=== PATIENT | female | born 1980 | race Caucasian/White ===

== ENCOUNTER 2018-02-20 06:20 | Day surgery (SDC) | payer OTHER, SELFPAY ==
[2018-02-20] VITALS (7 sets, daily range): BP systolic 68–111; BP diastolic 52–60; PULSE 18–91; RESP 18; TEMP 36.6–37.1; O2SAT 94–99; BMI 22.7
--- NOTE | 2018-02-20 08:08 | OP.PCM_ITS ---
Operative Report Date of Procedure: 02/20/18 Preop diagnosis: [Patient with family history of colon cancer her father in his 40s] Postop diagnosis: [Normal-looking colon no large polyps seen] Anesthesia:[The MAC] Instrument:[Olympus adjustable pediatric colonoscope] Informed consent was taken prior to procedure. The patient was brought to the endoscopy suite and placed in the left shoulder down. Anesthesia provided the MAC. Rectal exam was performed prior to inserting the scope. The colonoscope was passed in the rectum rectal mucosa was normal moving up the left colon there was some redundancy to the left colon. Across the splenic flexure into the transverse colon mucosa was normal down the right colon cecum was well- visualized patient excellent preparation. The terminal ileum was intubated the ileum was normal. Backup the right colon the mucosa was normal there were no large polyps seen across the transverse colon below splenic flexure nodule left colon the vascular pattern mucosa was normal there were no large polyps in the left colon. Retroflexion performed in the rectum showed small internal hemorrhoid the colon was decompressed and the patient tolerated procedure well. Impression: Family history of colon cancer patient's father colon cancer in his 40s Plan: Repeat a colonoscopy in 7-[address] Jeff Mehta
== END 2018-02-20 09:05 | disposition home or self-care (01) ==
LOC: EN 06:22 → AC 06:23
PROVIDERS: Family Provider Family Medicine; PCP Family Medicine; Visit Provider Internal Medicine Gastroenterology
PROC: 0DJD8ZZ Inspection of Lower Intestinal Tract, Via Natural or Artificial Opening Endoscopic (ICD-10-PCS; CPT 45378; principal; 2018-02-20 07:25)
DX: R19.4 Change in bowel habit (principal); Q43.8 Other specified congenital malformations of intestine; Z88.2 Allergy status to sulfonamides; Z98.51 Tubal ligation status; Z80.0 Family history of malignant neoplasm of digestive organs
CPT/HCPCS: 45378; J7120

== ENCOUNTER → 2018-06-19 11:25 | Outpatient (CLI) | payer OTHER, SELFPAY ==
[2018-06-23 15:27] LABS: HPV Reflexed? NOT INDICATED
== END ==
PROVIDERS: Family Provider Family Medicine; PCP Family Medicine; Visit Provider Obstetrics & Gynecology
DX: Z12.4 Encounter for screening for malignant neoplasm of cervix (principal)
CPT/HCPCS: 88175; G0145

== ENCOUNTER → 2018-07-08 10:21 | Outpatient (CLI) | payer OTHER, SELFPAY ==
[2018-07-08 10:39] LABS: Absolute Lymphocyte Count 1.65 X10^3/ul (0.83-4.51); Absolute Neutrophil Count 3.9 X10^3/uL (2.0-7.7); Basophil# 0.02 X10^3/uL; Basophil% 0.3 % (0-1); Eosinophil# 0.05 X10^3/uL; Eosinophils% 0.8 % (0-5); Hematocrit 40.5 % (37-47); Hemoglobin 13.4 g/dl (12.0-15.0); Lymphocyte # 1.65 X10^3/ul (4.0); Mean Corp Hgb Conc 33.1 g/gl (32-36); Mean Corpuscular Hgb 31.5 pg (27.0-32.0); Mean Corpuscular Volume 95.3 fL (81-99); Mean Platelet Vol. 10.3 fl (6.2-12.0); Monocyte# 0.53 X10^3/uL; Monocyte% 8.7 % (0-10); Neutrophil # 3.85 X10^3/uL (2.7-7.7); Neutrophil % 63.2 % (47-70); POSITIVE COUNT NO; POSITIVE DIFFERENTIAL NO; POSITIVE MORPHOLOGY NO; Platelet Count 202 K/mm3 (150-450); RBC Distribution Width CV 12.9 % (11.6-14.6); RBC Distribution Width SD 44.9 fl (35.1-43.9); Red Blood Count 4.25 M/mm3 (4.2-5.4); White Blood Count 6.1 K/mm3 (4.4-11.0)
== END ==
PROVIDERS: Family Provider Family Medicine; PCP Family Medicine; Visit Provider Family Medicine
DX: D72.89 Other specified disorders of white blood cells (principal)
CPT/HCPCS: 36415; 85025

== ENCOUNTER → 2018-09-11 14:51 | Outpatient (CLI) | payer OTHER, SELFPAY | PROVIDERS: Family Provider Family Medicine; PCP Family Medicine; Referring Provider Otolaryngology; Visit Provider Otolaryngology | DX: J02.9 Acute pharyngitis, unspecified (principal) | CPT/HCPCS: 87070; 87077 ==

== ENCOUNTER → 2019-07-24 16:00 | Outpatient (CLI) | payer OTHER, SELFPAY ==
[2019-08-18 15:40] LABS: HPV Reflexed? NOT INDICATED
== END ==
PROVIDERS: Visit Provider Obstetrics & Gynecology
DX: Z12.4 Encounter for screening for malignant neoplasm of cervix (principal)
CPT/HCPCS: 88175; G0145

== ENCOUNTER → 2020-08-02 | Outpatient (CLI) | payer OTHER, SELFPAY ==
[2020-08-02 08:57] VITALS: BMI 22.7
[2020-08-08 01:42] LABS: HPV APTIMA, High Risk Negative (Negative)
== END | disposition home or self-care (01) ==
LOC: LABSPEC 15:15
PROVIDERS: PCP Obstetrics & Gynecology; Referring Provider Nurse Practitioner Women's Health; Visit Provider Nurse Practitioner Women's Health
DX: Z12.4 Encounter for screening for malignant neoplasm of cervix (principal)
CPT/HCPCS: 87624; 88175; G0145

== ENCOUNTER → 2020-08-19 07:15 | Outpatient (CLI) | payer OTHER, SELFPAY ==
[2020-08-02 08:57] VITALS: BMI 22.7
--- NOTE | 2020-08-19 06:56 | BI_ITS ---
MAMMOGRAPHY - BILATERAL SCREENING REASON FOR EXAM: Female, 39 years old. Routine annual screening examination. PERTINENT HISTORY: Non-contributory. TECHNIQUE: Digital bilateral breast teressa (3D mammographic acquisition) in the CC and MLO projections. 2-D mediolateral oblique (MLO) and craniocaudad (CC) views of both breasts were obtained. CAD: Full Field Digital Mammography with Computer Added Detection was performed. COMPARISON: None. Baseline examination. FINDINGS: Breast Composition: The breasts are extremely dense, which lowers the sensitivity of mammography. There are no dominant masses or suspicious calcifications. No other significant abnormalities are identified. BI/SCREEN MAMM (CAD) W/TERESSA BILAT IMPRESSION: Negative screening mammogram. Yearly followup mammogram recommended. (A) ASSESSMENT CATEGORY: BIRADS Category 1: Negative. A letter regarding these results will be sent to the patient by the facility within 30 days. Approximately 10% of breast cancers are not detected by mammography. A normal mammogram should not delay biopsy of a clinically suspicious abnormality. [id number] Electronically Signed: Deion Alonzo, at 12:35 EDT , Service support ,
== END ==
PROVIDERS: PCP Family Medicine; Referring Provider Nurse Practitioner Women's Health; Visit Provider Nurse Practitioner Women's Health
DX: Z12.31 Encounter for screening mammogram for malignant neoplasm of breast (principal)
CPT/HCPCS: 77063; 77067

== ENCOUNTER → 2021-08-21 14:37 | Outpatient (CLI) | payer OTHER, SELFPAY ==
--- NOTE | 2021-08-21 14:52 | BI_ITS ---
MAMMOGRAPHY - BILATERAL SCREENING REASON FOR EXAM: Female, 40 years old. Routine annual screening examination. PERTINENT HISTORY: Non-contributory. TECHNIQUE: Digital bilateral breast teressa (3D mammographic acquisition) in the CC and MLO projections. 2-D mediolateral oblique (MLO) and craniocaudad (CC) views of both breasts were obtained. CAD: Full Field Digital Mammography with Computer Added Detection was performed. COMPARISON: Comparison is made with prior examination dated 08/19/2020. FINDINGS: Breast Composition: The breasts are extremely dense, which lowers the sensitivity of mammography. There are no dominant masses or suspicious calcifications. No other significant abnormalities are identified. There has been no significant change since the prior study. BI/SCRN MAMM (CAD)W/TERESSA BILAT IMPRESSION: Stable bilateral screening mammogram. Yearly follow-up mammogram recommended. (A) ASSESSMENT CATEGORY: BIRADS Category 1: Negative. A letter regarding these results will be sent to the patient by the facility within 30 days. Approximately 10% of breast cancers are not detected by mammography. A normal mammogram should not delay biopsy of a clinically suspicious abnormality. [id number] Electronically Signed: Deion Alonzo MD at 15:27 EDT , Service support ,
== END ==
PROVIDERS: PCP Family Medicine; Referring Provider Obstetrics & Gynecology; Visit Provider Obstetrics & Gynecology
DX: Z12.31 Encounter for screening mammogram for malignant neoplasm of breast (principal)
CPT/HCPCS: 77063; 77067

== ENCOUNTER 2022-01-01 14:36 | Outpatient (RCR) | payer OTHER, SELFPAY | END 2022-01-08 23:59 | LOC: NS 14:36 | PROVIDERS: PCP Family Medicine; Referring Provider Family Medicine; Visit Provider Family Medicine | DX: Z71.3 Dietary counseling and surveillance (principal) | CPT/HCPCS: 97802 ==

== ENCOUNTER 2022-01-24 11:00 | Outpatient (RCR) | payer OTHER, SELFPAY | END 2022-02-08 23:59 | LOC: NS 11:00 | PROVIDERS: PCP Family Medicine; Referring Provider Family Medicine; Visit Provider Family Medicine | DX: Z71.3 Dietary counseling and surveillance (principal) | CPT/HCPCS: 97803 ==

== ENCOUNTER 2022-03-05 09:30 | Outpatient (RCR) | payer OTHER, SELFPAY | END 2022-03-10 23:59 | LOC: NS 09:30 | PROVIDERS: PCP Family Medicine; Referring Provider Family Medicine; Visit Provider Family Medicine | DX: Z71.3 Dietary counseling and surveillance (principal) | CPT/HCPCS: 97803 ==

== ENCOUNTER 2022-03-21 08:33 | Outpatient (RCR) | payer OTHER, SELFPAY | END 2022-04-10 23:59 | LOC: NS 08:33 | PROVIDERS: PCP Family Medicine; Referring Provider Family Medicine; Visit Provider Family Medicine | DX: Z71.3 Dietary counseling and surveillance (principal) | CPT/HCPCS: 97803 ==

== ENCOUNTER 2022-05-01 15:22 | Outpatient (RCR) | payer OTHER, SELFPAY | END 2022-05-10 23:59 | LOC: NS 15:22 | PROVIDERS: PCP Family Medicine; Referring Provider Family Medicine; Visit Provider Family Medicine | DX: Z71.3 Dietary counseling and surveillance (principal); Z68.22 Body mass index [BMI] 22.0-22.9, adult | CPT/HCPCS: 97803 ==

== ENCOUNTER 2022-05-22 08:25 | Outpatient (RCR) | payer OTHER, SELFPAY | END 2022-06-10 23:59 | LOC: NS 08:25 | PROVIDERS: PCP Family Medicine; Referring Provider Family Medicine; Visit Provider Family Medicine | DX: Z71.3 Dietary counseling and surveillance (principal) | CPT/HCPCS: 97803 ==

== ENCOUNTER 2022-07-24 07:19 | Emergency (ER) | payer OTHER, SELFPAY ==
[2022-07-24 07:20] VITALS: BP 112/86; PULSE 79; RESP 14; TEMP 35.7; O2SAT 99; BMI 23.8
--- NOTE | 2022-07-24 07:36 | EX.ED.DYSGE1 ---
HPI History of Present Illness Chief Complaint: Abd Pain Narrative Narrative: Patient presents with epigastric and left upper quadrant pain that was worse this morning. For the past year or so she has had this pain mostly in the mornings. Today it was worse than usual. By the time she got to the emergency department she was asymptomatic and she has no pain. She is able to pass gas, she has no nausea or vomiting, no diarrhea or constipation. She has no back pain or tearing sensation no flank pain. No urinary symptoms. She had a tubal ligation and is denying . Currently she is asymptomatic [facility] Medical History Anxiety with depression Home Medications venlafaxine 75 mg capsule,extended release 24 hr (Effexor XR) 75 mg PO DAILY #30 caps 08/07/21 [Rx Last Taken Unknown] venlafaxine 37.5 mg capsule,extended release 24 hr 37.5 mg PO DAILY #7 caps 01/22/22 [Rx Last Taken Unknown] sucralfate 1 gram tablet (Carafate) 1 g PO BID #10 tabs 07/24/22 [Rx Last Taken Unknown] Allergy/AdvReac Type Severity Reaction Status Date / Time sulfamethoxazole Allergy Swelling Verified 07/24/22 07:20 [From Bactrim] trimethoprim [From Bactrim] Allergy Swelling Verified 07/24/22 07:20 Family History Father Colon cancer Sister Lupus (systemic lupus erythematosus) Aunt Cancer Skin Grandfather Colon cancer Surgical History H/O section H/O tubal ligation H/O wisdom tooth extraction Social History household members: family number of children: 3 current occupational status: employed 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 ROS ROS ED ROS Narrative Past medical history: Reviewed Medications: Reviewed Social history: Noncontributory Review of systems: All systems negative except as indicated General: No fever Eyes: No visual changes ENT: No upper airway congestion, normal voice Neck: No neck pain Cardiovascular: No chest pain Respiratory: No shortness of breath or cough Gastrointestinal: As in HPI Genitourinary: No dysuria Musculoskeletal: Denies myalgias no difficulty with ambulation Skin: No rash Neurological: No memory loss, confusion or any focal weakness Psych: No recent behavioral changes Hematologic: No easy bleeding or easy bruising EXAM Physical Exam Narrative Exam Narrative: Physical exam General: Well nourished, Well developed, No Acute Distress Head: Normocephalic, Atraumatic Eyes: Conjunctiva not pale ENT: Moist mucous membranes Neck: Supple, Nontender, No lymphadenopathy Cardiovascular: Regular rate, Regular rhythm Respiratory: No distress, CTA bilaterally Abdomen: Soft, Nontender, Nondistended. I am palpating throughout the entire abdomen and she has no tenderness no guarding or rebound. Back: Nontender, Normal Inspection. Negative for: CVA tenderness Extremities: Nontender, No edema Skin: Normal color, No rash Neurological: Alert, Normal Strength, Normal Sensation Psychological: Normal affect Const Vital Signs: 07/24/22 07:20 Temperature 96.3 F L Temperature Source Temporal Pulse Rate 79 Respiratory Rate 14 Blood Pressure 112/86 H Blood Pressure Mean 94 Pulse Ox 99 Oxygen Delivery Method Room Air MDM MDM MDM Narrative Medical decision making narrative: Patient has a normal work-up. She appears well, she likely has gastritis, or an ulcer or GERD. She needs an endoscopy, she just darted a PPI 2 days ago with us a does not had enough time to work. She told me that a year ago she had about 6 weeks of a PPI and this improved her symptoms for a few months. Lab Data Labs: Laboratory Results - last 24 hr 07/24/22 07/24/22 08:04 08:04 WBC 4.0 L RBC 4.20 Hgb 11.7 L Hct 36.0 L MCV 85.7 MCH 27.9 MCHC 32.5 RDW Std Deviation 48.7 H RDW Coeff of Kayleigh 15.6 H Plt Count 260 MPV 10.0 Immature Gran % (Auto) 0.500 Neut % (Auto) 63.6 Lymph % (Auto) 21.7 [place] % (Auto) 12.0 H Eos % (Auto) 1.5 Baso % (Auto) 0.7 Absolute Neuts (auto) 2.6 Absolute Lymphs (auto) 0.87 Nucleated RBC % 0 Sodium 138 Potassium 4.4 Chloride 106 Carbon Dioxide 27.0 Anion Gap 5 BUN 11 Creatinine 0.83 Estim Creat Clear Calc 85.86 Est GFR (MDRD) Af Amer 96 Est GFR (MDRD) Non-Af 80 BUN/Creatinine Ratio 13.2 Glucose 92 Calcium 8.5 Total Bilirubin 0.60 AST 12 L ALT 16 Alkaline Phosphatase 44 L Total Protein 7.1 Albumin 3.4 Globulin 3.7 Albumin/Globulin Ratio 0.9 Lipase 206 Discharge Plan Triage Chief Complaint: Abd Pain ED Provider: César Bass Dx/Rx/DC Orders Clinical Impression: Acute epigastric pain, Gastritis Instructions: ED Gastritis (Adult) Prescriptions: New sucralfate [Carafate] 1 gram tablet 1 g PO BID Qty: 10 0RF No Action venlafaxine [Effexor XR] 75 mg capsule,extended release 24hr 75 mg PO DAILY Qty: 30 12RF venlafaxine 37.5 mg capsule,extended release 24hr 37.5 mg PO DAILY Qty: 7 0RF Primary Care Provider: Jeff Mehta Referrals: Fabrice Cuenca MD [Med Staff - Active Staff] - 3-5 Days Jeff Mehta MD [Primary Care Provider] - Disposition Disposition: Home, Self Care
[2022-07-24 08:11] LABS: Absolute Lymphocyte Count 0.87 X10^3/uL (0.83-4.51); Absolute Neutrophil Count 2.6 X10^3/uL (2.0-7.7); Basophil# 0.03 X10^3/uL; Basophil% 0.7 % (0-1); Eosinophil# 0.06 X10^3/uL; Eosinophils% 1.5 % (0-5); Hemoglobin 11.7 g/dL (12.0-15.0); Lymphocyte # 0.87 X10^3/ul (0.83-4.51); Lymphocyte % 21.7 % (19-41); Mean Corp Hgb Conc 32.5 g/dL (32-36); Mean Corpuscular Hgb 27.9 pg (27.0-32.0); Mean Corpuscular Volume 85.7 fL (81-99); Monocyte# 0.48 X10^3/uL; NRBC Flagged by Analyzer 0 % (0-5); Neutrophil # 2.55 X10^3/uL (2.7-7.7); Neutrophil % 63.6 % (47-70); Platelet Count 260 K/mm3 (150-450); RBC Distribution Width CV 15.6 % (11.6-14.6); RBC Distribution Width SD 48.7 fl (35.1-43.9)
[2022-07-24 08:33] LABS: ALB/GLOB Ratio 0.9 RATIO (0.9-2.4); AST(SGOT) 12 U/L (15-37); Alanine Aminotransfer ALT/SGPT 16 U/L (13-56); Albumin, Serum 3.4 g/dL (3.2-5.0); Alkaline Phosphatase 44 U/L (45-117); Anion Gap 5 (5-15); BUN 11 mg/dL (7-18); BUN/Creat Ratio 13.2 RATIO (10-20); Calcium,Total 8.5 mg/dL (8.5-10.1); Chloride 106 mmol/L (98-107); Creatinine, Serum 0.83 mg/dL (0.55-1.02); EST Glomerular Filtration Rate 80 mL/min (>60); Est Glom Filt Rate - Afr Amer 96 mL/min (>60); Estimated Creatinine Clearance 85.86 ml/min; Globulin 3.7 g/dL (2.2-4.2); Glucose 92 mg/dL (74-106); Lipase 206 U/L (73-393); Potassium 4.4 mmol/L (3.5-5.1); Protein, Total 7.1 g/dL (6.4-8.2); Sodium Level 138 mmol/L (136-145)
== END 2022-07-24 08:49 | disposition home or self-care (01) ==
LOC: ED 07:52
PROVIDERS: Emergency Provider Emergency Medicine; PCP Family Medicine; Visit Provider Emergency Medicine
DX: K29.70 Gastritis, unspecified, without bleeding (principal); Z98.51 Tubal ligation status; Z80.0 Family history of malignant neoplasm of digestive organs
CPT/HCPCS: 80053; 83690; 85025; 99283; A4216

== ENCOUNTER → 2022-09-03 | Outpatient (CLI) | payer OTHER, SELFPAY ==
--- NOTE | 2022-09-03 08:46 | BI_ITS ---
MAMMOGRAPHY - BILATERAL SCREENING REASON FOR EXAM: Female, 41 years old. Routine annual screening examination. PERTINENT HISTORY: Non-contributory. TECHNIQUE: Digital bilateral breast teressa (3D mammographic acquisition) in the CC and MLO projections. 2-D mediolateral oblique (MLO) and craniocaudad (CC) views of both breasts were obtained. CAD: Full Field Digital Mammography with Computer Added Detection was performed. COMPARISON: Comparison is made with prior study 08/21/2021 and 08/19/2020 FINDINGS: Breast Composition: The breasts are extremely dense, which lowers the sensitivity of mammography. There are no dominant masses or suspicious calcifications. No other significant abnormalities are identified. There has been no significant change since the prior study. BI/SCRN MAMM (CAD)W/TERESSA BILAT IMPRESSION: Stable bilateral screening mammogram. Yearly follow-up mammogram recommended. (A) ASSESSMENT CATEGORY: BIRADS Category 1: Negative. A letter regarding these results will be sent to the patient by the facility within 30 days. Approximately 10% of breast cancers are not detected by mammography. A normal mammogram should not delay biopsy of a clinically suspicious abnormality. [id number] Electronically Signed: Deion Alonzo MD at 9:50 EDT ,
== END | disposition home or self-care (01) ==
LOC: OPBI 08:44
PROVIDERS: PCP Family Medicine; Visit Provider Obstetrics & Gynecology
DX: Z12.31 Encounter for screening mammogram for malignant neoplasm of breast (principal)
CPT/HCPCS: 77063; 77067

== ENCOUNTER 2022-09-14 06:28 | Day surgery (SDC) | payer OTHER, SELFPAY ==
[2022-09-14] VITALS (7 sets, daily range): BP systolic 90–105; BP diastolic 57–70; PULSE 60–77; RESP 16; TEMP 36.6–37.1; O2SAT 94–100; BMI 23.4
--- NOTE | 2022-09-14 | GASB_PTH ---
PATIENT: SARAH FAY LOC: EN U#:[id number] AGE/SX: 41/F ROOM: RE09/14/[address]: Dr. Fabrice Cuenca MD : 1980 BED: DIS: 09/14/2022 SPEC #: [id number] RECD: 09/14/22 13:21 STATUS: ELENA MCHUGH #: [id number] FRANDY: 09/14/22 00:[address]: Fabrice Cuenca DEPT: SURGICAL PATHOLOGY RECD BY: Frandy Alcaraz ENTERED: 09/14/22 13:21 SP TYPE: Gastric Bx OTHR DR: Dr. Jeff Mehta MD Tissues: Gastric mucous membrane Procedures: Surgery Specimen Level IV HEADER OPERATION: Colonoscopy, EGD ([facility]), biopsy PRE-OP DIAGNOSIS: Left upper quadrant abdominal pain TISSUE SUBMITTED: Antrum biopsy for histo and H. pylori MICROSCOPIC DIAGNOSIS Antrum, biopsy: Mild gastritis. See microscopic description and comment. SJ:tino 09/17/2022 COMMENT The results of immunohistochemistry for Helicobacter pylori will be reported separately ([id number]). MICROSCOPIC DESCRIPTION Slides are reviewed. The specimen shows fragments of gastric mucosa with chronic inflammatory cell infiltrates in the lamina propria consisting of lymphocytes and plasma cells, consistent with mild chronic gastritis. GROSS DESCRIPTION Received in fixative is one container labeled with the patient's name and designated antrum. The specimen consists of two irregular fragments of light hurt soft tissue that in aggregate measure 0.5 x 0.3 x 0.1 cm. The specimen is totally submitted in one cassette. / AM:tino 09/14/2022 TC:3 CPT: 53017
--- NOTE | 2022-09-14 06:51 | PCM.HP.BLA ---
History and Physical Date of Admission: 09/14/22 Intake Vital Signs ? 07/24/2207:20 07/26/2213:00 Height 5 ft 7 in 5 ft 7 in Weight: 151 lb 14.376 oz 151 lb 8 oz BMI 23.8 23.7 BP 112/86 H 119/78 Blood Pressure Location ? Rt brachial Position ? Sitting Respiration 14 18 Pulse 79 73 Pulse Source ? Monitor Temp 96.3 F L 97.8 F Temp Source Temporal Temporal Pulse Oximetry (%) 99 100 Oxygen Delivery Method ? room air Intake Visit Reasons:?ED 07/24 RUQ PAIN Chief Complaint: Epigastric pain/upper abdomen Corrosion Engineer Required: No Is patient in pain?: No Allergies sulfamethoxazole [From Bactrim] Allergy (Verified 07/26/22 13:01) Swellingtrimethoprim [From Bactrim] Allergy (Verified 07/26/22 13:01) Swelling Medications omeprazole 20 mg capsule,delayed release 20 mg PO DAILY 07/26/22 [History Confirmed 07/26/22] sucralfate 1 gram tablet (Carafate) 1 g PO BID PRN 07/26/22 [History Confirmed 07/26/22] PFSH Medical History? Acute epigastric pain Anxiety with depression Family history of colon cancer in father Gastritis Surgical History? H/O section H/O tubal ligation H/O wisdom tooth extraction Family History?(Updated 07/26/22 @ 13:00 by Carol Covington) Father Colon cancerSister Lupus (systemic lupus erythematosus)Aunt Cancer ?? ? Skin Colon cancerGrandfather Colon cancer Social History? household members:? family number of children:? 3 current occupational status:? 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 Never smoker alcohol intake:? never substance use type:? does not use caffeine:? Yes what type of physical activity do you participate in:? walking seatbelt use:? always do you feel safe at home:? Yes additional social history:? Spouse: [facility] HPI HPI HPI: 41-year-old female here for left-sided abdominal pain.? She reports that for about a year she has been having left upper quadrant pain every morning when she wakes up with occasional nausea.? Patient had severe pain earlier this week and went to the emergency room.? Her white count was normal.? She has restarted her PPI.? Her last colonoscopy was 4 years ago.? She does have significant family history of colon cancer in relatives under age 60.? She denies any blood in her stool.? She has never had an EGD. ROS General General: No weight change, appetite, fatigue, colon cancer, breast cancer or weakness HEENT HEENT: No difficulty swallowing, eye injury, eye surgery, swollen glands or hoarseness Endo Endocrine: No thyroid disease, diabetes mellitus, thyroid cancer, Hair loss, heat intolerance or cold intolerance Skin Skin: No rash or changing moles Breast Breast: No left breast lump, right breast lump, nipple discharge, breast pain, abnormal mammogram, abnormal US or breast enlargement Musc Musculoskeletal: No back problems, arthritis, rheumatoid arthritis, gout or joint pain Cardio Cardiovascular: No murmur, pacemaker, heart disease, atrial fibrillation, high blood pressure, heart attack, heart stent, palpitations, shortness of breat with exertion or chest pain Psych Psychiatric: No depression, anxiety or hearing voices Resp Respiratory: No shortness of breath, No sleep apnea, No cough, No COPD, No asthma, No emphysema and No wheezing Gastro Gastrointestinal: Yes abdominal pain, No nausea or vomiting, No diarrhea, No constipation, No blood in stool, Yes acid reflux, No hemorrhoids, No ulcers, No gallbladder problem and No black,tarry stools Additional Details: Frequent belching Alexandru Hematologic: No blood thinners, No blood disorders, No bleeding, No anemia and No blood clots Neuro Neurologic: No system reviewed and no additional complaints, except as documented, No as per HPI, No abnormal gait, No abnormal hearing, No abnormal movements, No abnormal speech, No behavioral changes, No burning sensations, No confusion, No convulsions, No disequilibrium, No dizziness, No localized weakness, No frequent falls, No headache(s), No lack of coordination, No loss of vision, No memory loss, No numbness, No other visual disturbances, No radicular pain, No restless legs, No sensory deficit, No syncope, No tingling, No tremor(s), No weakness and No other Exam Const General: cooperative Orientation: alert and oriented x3 HENMT Head: normal to inspection Neck Neck: normal visual inspection and full ROM Chest Chest palpation & inspection: normal inspection of the chest Resp Effort & Inspection: normal respiratory effort Auscultation: clear to auscultation bilaterally Cardio Rate: regular rate Rhythm: regular rhythm GI Inspection: non-distended Palpation: soft and nontender Skin General: no rashes or lesions noted Neuro General: patient alert and patient oriented x3 Extrem General: full ROM Psych Appearance: grossly normal Mental Status: mental status grossly normal Assessment and Plan Assessment and Plan (1) Left upper quadrant abdominal pain: ?Status:?Acute ?Plan: Patient has ongoing left upper quadrant pain with occasional nausea.? She has resumed her PPI.? I would recommend EGD and colonoscopy.? I believe she needs EGD with biopsy to ensure there is no H. pylori and to check for ulceration that is not healing.? I would also recommend colonoscopy as she will be due for screening next year anyway as she has family history and every 5-year colonoscopy would be recommended.? Left upper quadrant pain could also be arising from the colon. I explained endoscopy in detail to the patient.? I explained the risks including but not limited to stroke or heart attack with anesthesia, perforation of the GI tract, bleeding, infection.? I explained that any of these could necessitate further emergency surgery.? The patient understands and all questions were answered sufficiently.? The patient wishes to proceed with procedure. Fabrice Cuenca MD Pager: [facility] [address] [place] [address], [address] [place] [address] Office: I have seen and reexamined the patient and there are no changes
[2022-09-14] MEDS: Lactated Ringers 1,000 ML 15 ML IV (07:05)
--- NOTE | 2022-09-14 07:30 | IMM_PTH ---
PATIENT: SARAH FAY LOC: EN U#:[id number] AGE/SX: 41/F ROOM: RE09/14/[address]: Dr. Fabrice Cuenca MD : 1980 BED: DIS: 09/14/2022 SPEC #: [id number] RECD: 09/14/22 13:49 STATUS: ELENA REQ #: [id number] FRANDY: 09/14/22 07:[address]: Fabrice Cuenca DEPT: IMMUNOHISTOCHEMISTRY RECD BY: Maryuri Real ENTERED: 09/14/22 13:49 SP TYPE: IMMUNO OTHR DR: Dr. Jeff Mehta MD Tissues: Stomach, NOS Procedures: H Pylori (initial) PHYSICIAN & INSTITUTION [place] [id number] SPECIMEN INFORMATION: Tissue Source: Antrum biopsy Clinical Info: Left upper quadrant abdominal pain Specimen Number: [id number] CPT code: 84823 METHODOLOGY: Deparaffinized sections of prefer/formalin-fixed tissue or PAP/DQ stained slides are incubated with monoclonal/polyclonal antibodies/oligonucleotide probes. Localization is made via biotin free immunoperoxidase method. Appropriate controls are performed and reacted as expected. Results on target cell population are indicated in the following table: RESULTS: ANTIBODY / CLONE RESULT H Pylori (polyclonal) negative These tests were developed and their performance characteristics determined by [facility]. They may not have been cleared or approved by the U.S. Food and Drug Administration. The FDA has determined that such clearance or approval is not necessary. The above immunohistochemical/dualISH markers are ordered and reviewed by the Pathologist. INTERPRETATION: Antrum, biopsy: Negative for Helicobacter pylori organisms. KATHY:tino 09/17/2022
--- NOTE | 2022-09-14 08:18 | OP.EGD_ITS ---
Patient Name: Mary Ramos Procedure Date: 09/14/2022 7:24 AM Date of : 1980 Age: 41 Procedure: Upper GI endoscopy Indications: Abdominal pain in the left upper quadrant, Dyspepsia Providers: Fabrice Cuenca MD Referring MD: Jeff Mehta Medicines: Monitored Anesthesia Care Patient Profile: This is a 41 year old female. Refer to note in patient chart for documentation of history and physical. Complications: No immediate complications. Estimated blood loss: Minimal. Procedure: Pre-Anesthesia Assessment: - Prior to the procedure, a History and Physical was performed, and patient medications and allergies were reviewed. The patient's tolerance of previous anesthesia was also reviewed. The risks and benefits of the procedure and the sedation options and risks were discussed with the patient. All questions were answered, and informed consent was obtained. Prior Anticoagulants: The patient has taken no previous anticoagulant or antiplatelet agents. After reviewing the risks and benefits, the patient was deemed in satisfactory condition to undergo the procedure. After obtaining informed consent, the endoscope was passed under direct vision. Throughout the procedure, the patient's blood pressure, pulse, and oxygen saturations were monitored continuously. The gastroscope was introduced through the mouth, and advanced to the second part of duodenum. The upper GI endoscopy was accomplished without difficulty. The patient tolerated the procedure well. Scope In: 7:48:02 AM Scope Out: 7:51:13 AM Total Procedure Duration Time 0 hours 3 minutes 11 seconds Findings: The esophagus was normal. The stomach was normal. The examined duodenum was normal. Biopsies were taken with a cold forceps in the gastric antrum for Helicobacter pylori testing. Impression: - Normal esophagus. - Normal stomach. - Normal examined duodenum. - Biopsies were taken with a cold forceps for Helicobacter pylori testing. Recommendation: - Discharge patient to home. - Resume previous diet. - Continue present medications. - Await pathology results. Procedure Code(s): --- Professional --- 90764, Esophagogastroduodenoscopy, flexible, transoral; with biopsy, single or multiple Diagnosis Code(s): --- Professional --- R10.12, Left upper quadrant pain R10.13, Epigastric pain CPT copyright 2017 [employer]. All rights reserved. The codes documented in this report are preliminary and upon courtesy driver review may be revised to meet current compliance requirements. Fabrice Cuenca MD 09/14/2022 8:18:21 AM This report has been signed electronically. Number of Addenda: 0 Note Initiated On: 09/14/2022 7:24 AM
--- NOTE | 2022-09-14 08:19 | OP.CCLET_ITS ---
09/14/2022 Jeff Mehta Re : Upper GI endoscopy procedure for Mary Ramos Dear Tyson This procedure was performed on Wednesday, September 14, 2022. My impressions and recommendations are as follows: Impressions : - Normal esophagus. - Normal stomach. - Normal examined duodenum. - Biopsies were taken with a cold forceps for Helicobacter pylori testing. Recommendations : - Discharge patient to home. - Resume previous diet. - Continue present medications. - Await pathology results. My findings are described in the full procedure note, which is enclosed. If I can be of further assistance, please feel free to contact me at Doctor phone number(s): , Work: . Sincerely, Fabrice Cuenca MD 09/14/2022 8:18:21 AM This report has been signed electronically.
--- NOTE | 2022-09-14 08:22 | OP.CCLET_ITS ---
09/14/2022 Jeff Mehta Re : Colonoscopy procedure for Mary Ramos Dear Tyson This procedure was performed on Wednesday, September 14, 2022. My impressions and recommendations are as follows: Impressions : - The entire examined colon is normal on direct and retroflexion views. - No specimens collected. Recommendations : - Discharge patient to home. - Resume previous diet. - Continue present medications. - Repeat colonoscopy in 5 years for surveillance. My findings are described in the full procedure note, which is enclosed. If I can be of further assistance, please feel free to contact me at Doctor phone number(s): , Work: . Sincerely, Fabrice Cuenca MD 09/14/2022 8:21:20 AM This report has been signed electronically.
--- NOTE | 2022-09-14 08:22 | OP.COLON_ITS ---
Patient Name: Mary Ramos Procedure Date: 09/14/2022 7:52 AM Date of : 1980 Age: 41 Procedure: Colonoscopy Indications: Screening in patient at increased risk: Family history of 1st-degree relative with colorectal cancer Providers: Fabrice Cuenca MD Referring MD: Jeff Mehta Medicines: Monitored Anesthesia Care Patient Profile: This is a 41 year old female. Refer to note in patient chart for documentation of history and physical. Last Colonoscopy: 5 years ago. Complications: No immediate complications. Procedure: Pre-Anesthesia Assessment: - Prior to the procedure, a History and Physical was performed, and patient medications and allergies were reviewed. The patient's tolerance of previous anesthesia was also reviewed. The risks and benefits of the procedure and the sedation options and risks were discussed with the patient. All questions were answered, and informed consent was obtained. Prior Anticoagulants: The patient has taken no previous anticoagulant or antiplatelet agents. After reviewing the risks and benefits, the patient was deemed in satisfactory condition to undergo the procedure. After I obtained informed consent, the scope was passed under direct vision. Throughout the procedure, the patient's blood pressure, pulse, and oxygen saturations were monitored continuously. The Colonoscope was introduced through the anus and advanced to the cecum, identified by appendiceal orifice and ileocecal valve. The colonoscopy was performed without difficulty. The patient tolerated the procedure well. The quality of the bowel preparation was good. Scope In: 7:53:54 AM Scope Withdrawal Time 0 hours 6 minutes 0 seconds Scope Out: 8:08:33 AM Total Procedure Duration Time 0 hours 14 minutes 39 seconds Findings: The entire examined colon appeared normal on direct and retroflexion views. Impression: - The entire examined colon is normal on direct and retroflexion views. - No specimens collected. Recommendation: - Discharge patient to home. - Resume previous diet. - Continue present medications. - Repeat colonoscopy in 5 years for surveillance. Procedure Code(s): --- Professional --- 29318, Colonoscopy, flexible; diagnostic, including collection of specimen(s) by brushing or washing, when performed (separate procedure) Diagnosis Code(s): --- Professional --- Z80.0, Family history of malignant neoplasm of digestive organs CPT copyright 2017 [employer]. All rights reserved. The codes documented in this report are preliminary and upon solvent recoverer review may be revised to meet current compliance requirements. Fabrice Cuenca MD 09/14/2022 8:21:20 AM This report has been signed electronically. Number of Addenda: 0 Note Initiated On: 09/14/2022 7:52 AM
== END 2022-09-14 09:10 | disposition home or self-care (01) ==
LOC: EN 06:29 → AC 06:29
PROVIDERS: PCP Family Medicine; Referring Provider Family Medicine; Visit Provider Surgery
PROC: 0DJD8ZZ Inspection of Lower Intestinal Tract, Via Natural or Artificial Opening Endoscopic (ICD-10-PCS; CPT 45378; principal; 2022-09-14 07:25)
DX: Z12.11 Encounter for screening for malignant neoplasm of colon (principal); K29.70 Gastritis, unspecified, without bleeding; R10.12 Left upper quadrant pain; R10.13 Epigastric pain; Z80.0 Family history of malignant neoplasm of digestive organs
CPT/HCPCS: 45378; 43239; 88305; 88342; J7120; J2405

== ENCOUNTER 2022-09-28 15:25 | Outpatient (CLI) | payer OTHER, SELFPAY | END 2022-09-28 23:59 | disposition home or self-care (01) | LOC: LABSPEC 15:26 | PROVIDERS: PCP Family Medicine; Visit Provider Family Medicine | DX: R30.0 Dysuria (principal) | CPT/HCPCS: 87086; 87088 ==

== ENCOUNTER → 2023-09-02 | Outpatient (CLI) | payer OTHER, SELFPAY ==
--- NOTE | 2023-09-02 08:00 | BI_ITS ---
MAMMOGRAPHY - BILATERAL SCREENING REASON FOR EXAM: Female, 42 years old. Routine annual screening examination. PERTINENT HISTORY: Non-contributory. TECHNIQUE: Digital bilateral breast teressa (3D mammographic acquisition) in the CC and MLO projections. 2-D mediolateral oblique (MLO) and craniocaudad (CC) views of both breasts were obtained. CAD: Full Field Digital Mammography with Computer Added Detection was performed. COMPARISON: Comparison is made with prior study September 03, 2022 and August 21, 2021. FINDINGS: Breast Composition: The breasts are extremely dense, which lowers the sensitivity of mammography. There are no dominant masses or suspicious calcifications. No other significant abnormalities are identified. There has been no significant change since the prior study. BI/SCRN MAMM (CAD)W/TERESSA BILAT IMPRESSION: Stable bilateral screening mammogram. Yearly follow-up mammogram recommended. (A) ASSESSMENT CATEGORY: BIRADS Category 1: Negative. A letter regarding these results will be sent to the patient by the facility within 30 days. Approximately 10% of breast cancers are not detected by mammography. A normal mammogram should not delay biopsy of a clinically suspicious abnormality. [id number] Electronically Signed: Deion Alonzo MD at 9:09 EDT ,
== END | disposition home or self-care (01) ==
LOC: OPBI 08:00
PROVIDERS: PCP Family Medicine; Referring Provider Obstetrics & Gynecology; Visit Provider Obstetrics & Gynecology
DX: Z12.31 Encounter for screening mammogram for malignant neoplasm of breast (principal)
CPT/HCPCS: 77063; 77067

== ENCOUNTER → 2024-07-27 | Outpatient (CLI) | payer OTHER, SELFPAY | END | disposition home or self-care (01) | LOC: MFPLAB 11:38 | PROVIDERS: PCP Family Medicine; Visit Provider Family Medicine | DX: N39.0 Urinary tract infection, site not specified (principal) | CPT/HCPCS: 87086; 87088; 87186 ==

== ENCOUNTER → 2024-09-07 | Outpatient (CLI) | payer OTHER, SELFPAY ==
--- NOTE | 2024-09-07 09:44 | BI_ITS ---
MAMMOGRAPHY - BILATERAL SCREENING REASON FOR EXAM: Female, 43 years old. Routine annual screening examination. PERTINENT HISTORY: Aunt with breast cancer. TECHNIQUE: Digital bilateral breast teressa (3D mammographic acquisition) in the CC and MLO projections. 2-D mediolateral oblique (MLO) and craniocaudad (CC) views of both breasts were obtained. CAD: Full Field Digital Mammography with Computer Added Detection was performed. COMPARISON: Comparison is made with prior study dated September 02, 2023 and September 03, 2022. FINDINGS: Breast Composition: The breasts are extremely dense, which lowers the sensitivity of mammography. There are no dominant masses or suspicious calcifications. No other significant abnormalities are identified. There has been no significant change since the prior study. BI/SCRN MAMM (CAD)W/TERESSA BILAT IMPRESSION: Stable bilateral screening mammogram. Yearly follow-up mammogram recommended. (A) ASSESSMENT CATEGORY: BIRADS Category 1: Negative. A letter regarding these results will be sent to the patient by the facility within 30 days. Approximately 10% of breast cancers are not detected by mammography. A normal mammogram should not delay biopsy of a clinically suspicious abnormality. [id number] Electronically Signed: Deion Alonzo MD at 10:41 EDT ,
--- OUTSIDE RECORDS SUMMARY | 2024-09-07 10:27 | XMS RPT_ITS | CCD ---
Author Organization [facility] Care Team Providers Care Sole Assessor Name Role Phone Huy Richardson Unavailable Evita Gunderson LPN Unavailable Huy Richardson Unavailable Unavailable Primary Care Provider Unavailabl e Unavailable Primary Care Provider Unavailabl e PROVIDER, UNKNOWN Admitting Unavailable PROVIDER, UNKNOWN Attending Unavailable PROVIDER, UNKNOWN Attending Unavailable PROVIDER, UNKNOWN Admitting Unavailable PROVIDER, UNKNOWN Admitting Unavailable FRANDY ALVARADO Attending Unavailable PROVIDER, UNKNOWN Admitting Unavailable PROVIDER, UNKNOWN Attending Unavailable Allergies Allergy Classification Reported Allergen(s) Allergy Type Date of Onset Reaction(s) Facility (11 sources) Sulfamethoxazole ; Translations: [SULFAMETHOXAZOL E] Propensity to adverse reactions to drug 08-17-[address] [facility] Medications Current Medications Medication Drug Class(es) Dates Sig (Normalized) Sig (Original) cephalexin 500 mg oral capsule (1 source) Cephalosporin Antibacterial Start: 07-02-2024 End: 07-16-2024 take 1 capsule by mouth four times daily cephALEXin (KEFLEX) 500 MG capsule Take 1 Capsule by mouth 4 times daily for 14 days. 56 Capsule 07/02/2024 07/16/2024 Active clindamycin 150 mg oral capsule (3 sources) Lincosamide Antibacterial Start: 07-02-2024 End: 07-16-2024 take 2 capsules by mouth four times daily clindamycin (CLEOCIN) 150 MG capsule Take 2 Capsules by mouth 4 times daily for 14 days. 112 Capsule 07/02/2024 Active doxycycline monohydrate 100 mg oral capsule (8 sources) Tetracycline-class Drug Start: 08-08-2023 take 1 capsule by mouth twice daily doxycycline (MONODOX) 100 MG capsule Take 1 Capsule by mouth 2 times daily. 14 Capsule 08/08/2023 Active metroNIDAZOLE 500 mg oral tablet (1 source) Nitroimidazole Antimicrobial Start: 07-02-2024 End: 07-09-2024 take 1 tablet by mouth twice daily metronidazole (FLAGYL) 500 MG tablet Take 1 Tablet by mouth 2 times daily for 7 days. 14 Tablet 07/02/2024 07/09/2024 Active Completed/Discontinued Medications Medication Drug Class(es) Dates Sig (Normalized) Sig (Original) cefTRIAXone 500 mg injection (1 source) Cephalosporin Antibacterial Start: 07-02-2024 End: 07-02-2024 inject 1 dose by intramuscular injection once 500 mg, Intramuscular, ONCE, 1 dose, On Liz 07/02/24 at 1112 10 ml lidocaine hydrochloride 10 mg/ml injection (1 source) Antiarrhythmic, Amide Local Anesthetic Start: 07-02-2024 End: 07-02-2024 1 dose, Starting on Liz 07/02/24 at 1123, Until Liz 07/02/24 at 1135 Problems Active Problems Problem Classification Problem Date Documented Da te Episodic/Chronic Inflammatory diseases of female pelvic organs (1 source) Bacterial vaginosis; Translations: [Acute vaginitis] 07-02-2024 Episodic Other injuries and conditions due to external causes (1 source) Foreign body in vagina; Translations: [Foreign body in vulva and vagina, initial encounter] 07-02-2024 Episodic Other screening for suspected conditions (not mental disorders or infectious disease) (2 sources) Patient encounter status; Translations: [Encounter for screening for lipoid disorders] 07-04-2023 Episodic Residual codes; unclassified (4 sources) Body mass index 20-24 - normal; Translations: [Body mass index (BMI) 24.0-24.9, adult] 08-08-2023 Episodic Skin and subcutaneous tissue infections (4 sources) Paronychia of finger; Translations: [Cellulitis of unspecified finger] 08-08-2023 Episodic Past or Other Problems Problem Classification Problem Date Documented Da te Episodic/Chronic Other upper respiratory infections (3 sources) Pharyngitis; Translations: [Acute pharyngitis, unspecified] Onset: 04-07-2017 04-07-2017 Episodic Results Test Name Value Interpretation Reference Range Facility ED Noteson 07-02-2024 Information Technology Specialist Authentication Interface Message Text Pt discharged at this time, no S/S distress, no IV present. Discharge paperwork provided, pt voices understanding of same and denies questions. PT ambulates to lobby with no difficulty. Normal [facility] ED Provider [place]oon 07-02-20 Information Technology Specialist Authentication Interface Message Text EMERGENCY DEPARTMENT - VISIT NOTE HISTORY OF PRESENT ILLNESS ------ Chief Complaint Patient presents with Foreign Body - Other States thinks she has a tampon stuck since Saturday, denies cramping, pain, discharge. +foul odor The history is provided by the Patient. SARAH Ramos is a 43 year old female presenting to the ED for concerns of a retained tampon x1 week, +foul odor, no abdominal/back pain, no dysuria. Pt Denies: N/V/D/F, abdominal/back pain, dysuria, or rash Sick Contacts: none Home Treatment: none PAST HISTORY -- Past Medical History: reviewed Surgical History: reviewed Social History: Smoking cessation counseling of less than 3 minutes was provided to the patient including Reinforced decision not to smoke. Family History: reviewed The patient's home medications have been reviewed. Allergies: Allergies Allergen Reactions Sulfamethoxazole Hives PHYSICAL EXAM --- BP 126/82 Pulse 74 Temp 98.1 ???F (36.7 ???C) (Oral) Resp 16 SpO2 100% General: NAD Head: Normocephalic Eyes: No conjunctival injection or eye discharge, lids normal Mouth: Moist mucous membranes, oropharynx clear Neck: FROM, no anterior cervical LAD, no bony tenderness Neuro: Awake, alert, active CVS: RRR Lungs: CTA bilaterally Abdomen: Soft, nontender, nondistended, no guarding : no CMT, no adnexal tenderness, +copious brown discharge, +retained tampon Skin: warm and dry Musculoskeletal: FROM Back: no bony tenderness, no CVAT MEDICAL DECISION MAKING and ED COURSE - Nursing triage and assessment notes reviewed and incorporated. Medication Management: Medications prescribed - see visit medications. Independent Test Interpretation: Labs Lab studies personally interpreted UA: no UTI, +some blood, +leukocytes GC/Chlamydia/Trichom onas: pending SOUTH/Wet Mount: +clue cells, no yeast Course: PROCEDURE NOTE: FOREIGN BODY REMOVAL Informed consent, after discussion of the risks, benefits, and alternatives to the procedure, was obtained verbally from the patient prior to procedure. The patient was identified using two patient identifiers: Yes. The H AND P along with required diagnostics are available in Epic: Yes The correct procedure was verified: Yes Procedural site identified: Yes Presence of required equipment verified prior to starting procedure: Yes Patient allergies identified or reviewed: Yes Site marking done: Not indicated A timeout to verify the correct patient, procedure, and site was performed immediately prior to the procedure The presence of the foreign body in the vagina was noted. The patient was cooperative for the procedure. The foreign body was removed using forceps. The patient tolerated the procedure well. Frandy Alvarado APRN-FERNANDO Assessment AND Plan: Foreign Body Vagina Discussed reasons to return to the ED. F/u with MACHINE SWEEPER BRUSH MAKER/PCP. IMPRESSION AND DISPOSITION -------- Clinical Impression Diagnosis Comment Foreign body in vagina, initial encounter [T19.2XXA] Bacterial vaginosis [N76.0, B96.89] Disposition: Home The patient has received a medical screening examination and within reasonable clinical confidence an emergency medical condition was identified and has been stabilized. Counseling: Spoke with the patient and discussed today's findings, in addition to providing specific details for the plan of care and expected course. They were given the opportunity to ask questions. Discussed return precautions and importance of follow-up. Advised to follow-up with PCP/MACHINE SWEEPER BRUSH MAKER. Advised to return to the ED for changing or worsening symptoms, new symptoms, complaint specific precautions, and precautions listed on the discharge paperwork. Educated on the common potential side effects of medications prescribed. ED Prescriptions: Clindamycin, Keflex, Flagyl Frandy Alvarado, ICE CREAM MIXER-WEB DEVELOPMENT MANAGER Normal [facility] GC/CHLAMYDIA AMPLIFICATIONon 07-02-2024 GC/CHLAMYDIA AMPLIFICATION GC AMPLIFICATION: Negative CHLAMYDIA AMPLIFICATION: Negative Normal Negative [facility] Comment on above: Order Comment: This test is performed using an automated nucleic acid amplification assay (Feedback-Machine). Performed By: #### G CA #### [facility] [address] [place], [place] SOUTH PREP, FUNGUSon Fungus SOUTH prep Ql (Unsp spec) No Yeast Negative [facility] SOUTH PREP, FUNGUS CR SOUTH: No Yeast Normal Negative [facility] Comment on above: Performed By: #### C R WET, CR SOUTH #### [facility] [address] [place], [place] No Panel Informationon 07-02 [facility] URINALYSISon 07-02-2024 Appearance (U) Clear Clear [facility] Bilirubin Ql (U) Negative Negative [facility] Color (U) Light Yellow Colorless [facility] Epithelial cells.squamous LM.HPF (Urine sed) [#/Area] 6-10 [facility] Glucose Auto test strip (U) [Mass/Vol] Negative Negative mg/dL [facility] Hemoglobin Ql (U) Small Abnormal Negative [facility] Interpretation and review of laboratory results Abnormal [facility] Ketones Ql (U) Negative Negative mg/dL [facility] Leukocyte esterase Test strip Ql (U) Positive Abnormal Negative [facility] Comment on above: Normal urine specime ns will not produce a positive reaction. Small amounts of leukocyte esterase, causing a positive reaction should be repeated, using a fresh urine specimen, from the same patient. Positive results require further testing for pyuria. Nitrite Ql (U) Negative Negative [facility] pH (U) 6.0 [pH] 5.0 - 8.0 [facility] Protein (U) [Mass/Vol] Negative Negat vito mg/dL [facility] Specific gravity (U) [Rel density] 1.014 NINF - 1.030 [facility] Urobilinogen Qn (U) Negative Negative mg/dL [facility] WBC (U) [#/Vol] 0-2 [facility] WBC LM.HPF (Urine sed) [#/Area] 0-2 [facility] A negative leukocyte esterase AND negative nitrite test or absence of pyuria (urine WBC count <= 5-10) make a UTI (urinary tract infection) very unlikely in a non-neutropenic adult (<=5% likelihood in many studies). A positive leukocyte esterase, nitrite and/or pyuria is a nonspecific result. This can be seen in conditions other than a UTI e.g. asymptomatic bacteriuria, gynecologic infections, sexually transmitted infections, and noninfectious conditions (positive predictive value for UTI around 50%) [facility] Glucose Ql (U) Negative Normal Negative [facility] Comment on above: Order Comment: A neg ative leukocyte esterase AND negative nitrite test or absence of pyuria (urine WBC count <= 5-10) make a UTI (urinary tract infection) very unlikely in a non-neutropenic adult (<=5% likelihood in many studies). A positive leukocyte esterase, nitrite and/or pyuria is a nonspecific result. This can be seen in conditions other than a UTI e.g. asymptomatic bacteriuria, gynecologic infections, sexually transmitted infections, and noninfectious conditions (positive predictive value for UTI around 50%) Performed By: #### u rinalysis ####S PATHOLOGY [id number] [place], [id number] SQUAMOUS EPITHELIAL 6-10 Normal 0-10 [facility] Comment on above: Order Comment: A neg ative leukocyte esterase AND negative nitrite test or absence of pyuria (urine WBC count <= 5-10) make a UTI (urinary tract infection) very unlikely in a non-neutropenic adult (<=5% likelihood in many studies). A positive leukocyte esterase, nitrite and/or pyuria is a nonspecific result. This can be seen in conditions other than a UTI e.g. asymptomatic bacteriuria, gynecologic infections, sexually transmitted infections, and noninfectious conditions (positive predictive value for UTI around 50%) Performed By: #### u rinalysis ####[facility] [id number] [place], [place], U APPEAR Clear Normal Clear [facility] Comment on above: Order Comment: A neg ative leukocyte esterase AND negative nitrite test or absence of pyuria (urine WBC count <= 5-10) make a UTI (urinary tract infection) very unlikely in a non-neutropenic adult (<=5% likelihood in many studies). A positive leukocyte esterase, nitrite and/or pyuria is a nonspecific result. This can be seen in conditions other than a UTI e.g. asymptomatic bacteriuria, gynecologic infections, sexually transmitted infections, and noninfectious conditions (positive predictive value for UTI around 50%) Performed By: #### u rinalysis ####[facility] PATHOLOGY [id number] [place] [address], [place] BILI Negative Normal Negative [facility] Comment on above: Order Comment: A neg ative leukocyte esterase AND negative nitrite test or absence of pyuria (urine WBC count <= 5-10) make a UTI (urinary tract infection) very unlikely in a non-neutropenic adult (<=5% likelihood in many studies). A positive leukocyte esterase, nitrite and/or pyuria is a nonspecific result. This can be seen in conditions other than a UTI e.g. asymptomatic bacteriuria, gynecologic infections, sexually transmitted infections, and noninfectious conditions (positive predictive value for UTI around 50%) Performed By: #### u rinalysis ####[facility] PATH[facility]Y [id number] [place], [place], U BLOOD Small Abnormal Negative [facility] Comment on above: Order Comment: A neg ative leukocyte esterase AND negative nitrite test or absence of pyuria (urine WBC count <= 5-10) make a UTI (urinary tract infection) very unlikely in a non-neutropenic adult (<=5% likelihood in many studies). A positive leukocyte esterase, nitrite and/or pyuria is a nonspecific result. This can be seen in conditions other than a UTI e.g. asymptomatic bacteriuria, gynecologic infections, sexually transmitted infections, and noninfectious conditions (positive predictive value for UTI around 50%) Performed By: #### u rinalysis ####[facility] PATHOLOGY [id number] [place], [place], U COLOR Light Yellow Normal Colorless [facility] Comment on above: Order Comment: A neg ative leukocyte esterase AND negative nitrite test or absence of pyuria (urine WBC count <= 5-10) make a UTI (urinary tract infection) very unlikely in a non-neutropenic adult (<=5% likelihood in many studies). A positive leukocyte esterase, nitrite and/or pyuria is a nonspecific result. This can be seen in conditions other than a UTI e.g. asymptomatic bacteriuria, gynecologic infections, sexually transmitted infections, and noninfectious conditions (positive predictive value for UTI around 50%) Performed By: #### u rinalysis ####[facility] PATHOLOGY [id number] [place], [place], [place] KETONE Negative Normal Negative [facility] Comment on above: Order Comment: A neg ative leukocyte esterase AND negative nitrite test or absence of pyuria (urine WBC count <= 5-10) make a UTI (urinary tract infection) very unlikely in a non-neutropenic adult (<=5% likelihood in many studies). A positive leukocyte esterase, nitrite and/or pyuria is a nonspecific result. This can be seen in conditions other than a UTI e.g. asymptomatic bacteriuria, gynecologic infections, sexually transmitted infections, and noninfectious conditions (positive predictive value for UTI around 50%) Performed By: #### u rinalysis ####[facility] PATH[facility] [id number] [place], [place], U LEUK Positive Abnormal Negative [facility] Comment on above: Order Comment: A neg ative leukocyte esterase AND negative nitrite test or absence of pyuria (urine WBC count <= 5-10) make a UTI (urinary tract infection) very unlikely in a non-neutropenic adult (<=5% likelihood in many studies). A positive leukocyte esterase, nitrite and/or pyuria is a nonspecific result. This can be seen in conditions other than a UTI e.g. asymptomatic bacteriuria, gynecologic infections, sexually transmitted infections, and noninfectious conditions (positive predictive value for UTI around 50%) Result Comment: Norm al urine specimens will not produce a positive reaction. Small amounts of leukocyte esterase, causing a positive reaction should be repeated, using a fresh urine specimen, from the same patient. Positive results require further testing for pyuria. Performed By: #### u rinalysis ####[facility] PATHOLOGY [id number] [place], [place], [place] NITRITE Negative Normal Negative [facility] Comment on above: Order Comment: A neg ative leukocyte esterase AND negative nitrite test or absence of pyuria (urine WBC count <= 5-10) make a UTI (urinary tract infection) very unlikely in a non-neutropenic adult (<=5% likelihood in many studies). A positive leukocyte esterase, nitrite and/or pyuria is a nonspecific result. This can be seen in conditions other than a UTI e.g. asymptomatic bacteriuria, gynecologic infections, sexually transmitted infections, and noninfectious conditions (positive predictive value for UTI around 50%) Performed By: #### u rinalysis ####[facility] PATHOLOGY [id number] [place], [place], [place] PH 6.0 Normal 5.0-8.0 [facility] Comment on above: Order Comment: A neg ative leukocyte esterase AND negative nitrite test or absence of pyuria (urine WBC count <= 5-10) make a UTI (urinary tract infection) very unlikely in a non-neutropenic adult (<=5% likelihood in many studies). A positive leukocyte esterase, nitrite and/or pyuria is a nonspecific result. This can be seen in conditions other than a UTI e.g. asymptomatic bacteriuria, gynecologic infections, sexually transmitted infections, and noninfectious conditions (positive predictive value for UTI around 50%) Performed By: #### u rinalysis ####[facility] PATHOLOGY [id number] [place], [place], [place] PROTEIN Negative Normal Negative [facility] Comment on above: Order Comment: A neg ative leukocyte esterase AND negative nitrite test or absence of pyuria (urine WBC count <= 5-10) make a UTI (urinary tract infection) very unlikely in a non-neutropenic adult (<=5% likelihood in many studies). A positive leukocyte esterase, nitrite and/or pyuria is a nonspecific result. This can be seen in conditions other than a UTI e.g. asymptomatic bacteriuria, gynecologic infections, sexually transmitted infections, and noninfectious conditions (positive predictive value for UTI around 50%) Performed By: #### u rinalysis ####[facility] PATHOLOGY [id number] [place], [place], U RBC 0-2 Normal 0-2 [facility] Comment on above: Order Comment: A neg ative leukocyte esterase AND negative nitrite test or absence of pyuria (urine WBC count <= 5-10) make a UTI (urinary tract infection) very unlikely in a non-neutropenic adult (<=5% likelihood in many studies). A positive leukocyte esterase, nitrite and/or pyuria is a nonspecific result. This can be seen in conditions other than a UTI e.g. asymptomatic bacteriuria, gynecologic infections, sexually transmitted infections, and noninfectious conditions (positive predictive value for UTI around 50%) Performed By: #### u rinalysis ####[facility] PATHOLOGY [id number] [place], [place], [place] SG 1.014 Normal <=1.030 [facility] Comment on above: Order Comment: A neg ative leukocyte esterase AND negative nitrite test or absence of pyuria (urine WBC count <= 5-10) make a UTI (urinary tract infection) very unlikely in a non-neutropenic adult (<=5% likelihood in many studies). A positive leukocyte esterase, nitrite and/or pyuria is a nonspecific result. This can be seen in conditions other than a UTI e.g. asymptomatic bacteriuria, gynecologic infections, sexually transmitted infections, and noninfectious conditions (positive predictive value for UTI around 50%) Performed By: #### u rinalysis ####[facility] PATHOLOGY [id number] [place], [place], [place] UROBILI Negative Normal Negative [facility] Comment on above: Order Comment: A neg ative leukocyte esterase AND negative nitrite test or absence of pyuria (urine WBC count <= 5-10) make a UTI (urinary tract infection) very unlikely in a non-neutropenic adult (<=5% likelihood in many studies). A positive leukocyte esterase, nitrite and/or pyuria is a nonspecific result. This can be seen in conditions other than a UTI e.g. asymptomatic bacteriuria, gynecologic infections, sexually transmitted infections, and noninfectious conditions (positive predictive value for UTI around 50%) Performed By: #### u rinalysis ####S PATHOLOGY [id number] [place], [place], [place] WBC 0-2 Normal 0-2 [facility] Comment on above: Order Comment: A neg ative leukocyte esterase AND negative nitrite test or absence of pyuria (urine WBC count <= 5-10) make a UTI (urinary tract infection) very unlikely in a non-neutropenic adult (<=5% likelihood in many studies). A positive leukocyte esterase, nitrite and/or pyuria is a nonspecific result. This can be seen in conditions other than a UTI e.g. asymptomatic bacteriuria, gynecologic infections, sexually transmitted infections, and noninfectious conditions (positive predictive value for UTI around 50%) Performed By: #### u rinalysis ####[facility] PATHOLOGY [id number] [place], [place], WET MOUNT PREPARATIONOrdered By: Kt Leary on 07-02-2024 Clue cells Wet prep Ql (Unsp spec) Moderate (20-70%) Abnormal None Seen [facility] Interpretation and review of laboratory results Abnormal [facility] T. vaginalis Wet prep Ql (Unsp spec) None Seen None Seen [facility] WBC Wet prep (Unsp spec) [#/Area] 3-10 Abnormal None Seen /[facility] Yeast Wet prep Ql (Unsp spec) None Seen None [facility]en [facility] WET MOUNT PREPARATIONon 06-12 WET MOUNT PREPARATION CLUE CELLS: Moderate (20-70%) WBC: 3-10 TRICHOMONAS REFLEX: None Seen YEAST: None Seen Normal None Seen [facility] Comment on above: Performed By: #### C R WET, CR SOUTH #### [facility] Pathology [address] [facility] [address] [place], [place] Progress Noteson 08-10-2023 Information Technology Specialist Authentication Interface Message Text Called patient. Discussed sensitivity of staph aureus from wound culture. She continues to take doxycycline. Her wound is improving - - no pain minimal redness, no warmth no systemic signs of illness. A/P: Continue doxycycline. Follow up with PCP in two days. All questions answered Normal [facility] AEROBIC WOUND CULTUREon 07-13 AEROBIC WOUND CULTURE C PYOG: Positive Culture Report STAPHYLOCOCCUS AUREUS 2+ Staphylococcus aureus GRAM STAIN: 4+ Polymorphonuclear Leukocytes No Squamous Epithelial Cells seen 2+ Gram Positive Cocci Normal [facility] Comment on above: Performed By: #### C PYOG ####[facility] [id number] [place], [place] PACO ORGANISM: STAPHYLOCOCCUS AUREUS ANTIBIOTIC PACO SENSITIVITY Clindamycin 0.25 S Daptomycin <= 0.12 S Erythromycin <= 0.25 S Linezolid 2 S Oxacillin 0.5 S Tetracycline >= 16 R Trimethoprim + Sulfamethoxazole <= 10 S Vancomycin 1 S Doxycycline 8 I Normal [facility] Comment on above: Performed By: #### C PYOG ####[facility] [id number] [place], [place] Addendum Noteon 08-08-2023 Information Technology Specialist WOWIOation Interface Message Text Addended by: ROBEL CACERES on: 08/08/2023 02:49 PM Modules accepted: Level of Service Normal [facility] Progress Noteson 08-08-2023 Information Technology Specialist WOWIOation Interface Message Text Teaching Physician Note: I saw and evaluated the patient. I personally obtained the anthony and critical portions of the history and physical exam. I reviewed the resident's documentation and discussed the patient with the resident. I agree with the resident's medical decision making as documented in the resident's note. Robel Caceres MD Normal [employer] Information Technology Specialist Authentication Interface Message Text Primary Care Visit [place], [place] [address] This patient is a 42 year old female here in clinic today to discuss: Chief Complaint: Urgent Visit and Hand/finger symptoms No prior visits. Subjective: SARAH Ramos is a 42 year old female with no significant past medical history presenting for painful, red left second finger Pt presents with three weeks of left index finger swelling and pain. 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 Pt has been able to express pus in past week. Decreased sensation at tip of left first finger with redness, not extending proximally. Denies N/V/D, abdominal pain, fever. Hx Current Outpatient Medications: doxycycline (MONODOX) 100 MG capsule, Take 1 Capsule by mouth 2 times daily., Disp: 14 Capsule, Rfl: 0 Allergies Allergen Reactions Sulfamethoxazole Hives No past medical history on file. No past surgical history on file. No family history on file. Social History Tobacco Use Smoking status: Never Smokeless tobacco: Never Review of Systems: Review of Systems Constitutional: Negative for chills and fever. Gastrointestinal: Negative for abdominal pain, diarrhea, nausea and vomiting. Objective: Vitals: BP 126/69 Pulse 70 Temp 96.8 ???F (36 ???C) (Temporal) Resp 16 Ht 5' 7 (1.702 m) Wt 154 lb 8 oz (70.1 kg) SpO2 100% BMI 24.20 kg/m??? no prior weight on file Physical Exam Constitutional: General: She is not in acute distress. Appearance: Normal appearance. She is normal weight. She is not ill-appearing or toxic-appearing. Eyes: Extraocular Movements: Extraocular movements intact. Conjunctiva/sclera: Conjunctivae normal. Pupils: Pupils are equal, round, and reactive to light. Cardiovascular: Rate and Rhythm: Normal rate and regular rhythm. Pulses: Normal pulses. Heart sounds: Normal heart sounds. No murmur heard. No friction rub. No gallop. Pulmonary: Effort: Pulmonary effort is normal. Breath sounds: Normal breath sounds. No wheezing, rhonchi or rales. Abdominal: General: Abdomen is flat. Bowel sounds are normal. Palpations: Abdomen is soft. Musculoskeletal: General: Swelling (left distal second finger with fluctuant area palpated, tenderness, redness. Not extending proximal to left second DIP joint) present. Neurological: Mental Status: She is alert. Labs: Most Recent Labs: CBC (last 3 years, up to 5 values) None Basic Metabolic Panel None LFT's (last 3 years, up to 5 values) None No results found for: HBA1C Lipids (last 3 years, up to 5 values) Chol- esterol TG HDL LDL Chol / HDL LDL / HDL Non HDL 07/04/23 0746 111 64 62 41 1.79 0.66 49 The ASCVD Risk score (Bita DK, et al., 2019) failed to calculate. No results found for: TSH Assessment/Plan SARAH Ramos is a 42 year old female with no significant past medical history presenting for painful, red left second finger SARAH was seen today for urgent visit and hand/finger symptoms. Diagnoses and all orders for this visit: Paronychia of finger, unspecified laterality -Present for three weeks starting at medial nail base of second finger -Pt able to express pus with pressing on area -Fluctuant area palpated at medial finger -Pus expression suggests staph infection likely. - CONSENT FOR PROCEDURE(S) - AEROBIC WOUND CULTURE -Start doxycyline 100mg BID for 7 days. -Follow up with PCP in 7 days to ensure resolution of symptoms -Pt aware of need to go to the ED if redness does not resolve and begins to move proximally. PROCEDURE NOTE: INCISION AND DRAINAGE Informed consent was obtained after discussion of the risks, benefits, and alternatives to the procedure. A timeout to verify the correct patient, procedure, and site was performed immediately prior to the procedure. The area to I AND D was identified. Anesthesia was obtained with 5 cc of Lidocaine 1%. The area was prepped and draped in the usual fashion. A number 11 scalpel was used to create an incision. Return was 2 cc of purulent material mixed with blood. The site was then cleaned with alcohol wipes. A dressing was placed over the site. The patient tolerated the procedure well. Other orders - doxycycline (MONODOX) 100 MG capsule; Take 1 Capsule by mouth 2 times daily. Health Maintenance Health Maintenance Due Topic Date Due COVID-19 Vaccine (1329-3445 formulation) Never done HIV Test Never done Hepatitis C Antibody Never done Pap Smear Never done Mammography Never done HPV Vaccine (optional start 27-45 years) 2006 Influenza Vaccine (1) 07/12/2023 RTC: No follow-ups on file. Plan discussed with attending Dr. Caceres. Ej Petersen DO, PGY-1 Internal Medicine Normal [employer] Information Technology Specialist Authentication Interface Message Text Patient was identified by name and date of . Cresencio Petersen. 08/08/2023 Normal [employer] GLUCOSE, FASTINGon 3 Glucose post fast [Mass/Vol] 82 mg/dL 65 - 100 mg/dL [facility] Interpretation and review of laboratory results Normal [facility] Pre-Diabetes: 100 - 125 mg/dL Diabetes: > 125 mg/dL [facility] Lipid 1996 panelon 3 Cholesterol [Mass/Vol] 111 mg/dL NINF - 200 mg/dL [facility] Cholesterol in HDL [Mass/Vol] 62 mg/dL 54 - PINF mg/dL [facility] Cholesterol in LDL [Mass/Vol] 41 mg/dL NINF - 111 mg/dL [facility] Cholesterol in LDL/Cholesterol in HDL [Mass ratio] 0.66 {ratio} NINF - 3.57 [facility] Cholesterol non HDL [Mass/Vol] 49 mg/dL NINF - 130 mg/dL [facility] Cholesterol.total/Chol esterol in HDL [Mass ratio] 1.79 {ratio} NINF - 5.00 [facility] Interpretation and review of laboratory results Normal [facility] Triglyceride [Mass/Vol] 64 mg/dL NINF - 151 mg/dL [facility] Microbiology: Culture, R/O S trep Aon 04-10-2017 CUSTREPA . [facility] Work Phone: GE use only - for LinkLogic import when terms are not otherwise specified . Invalid Interpretation Code [facility] Work Phone: Office Visit: UC: Warner paul 04-07-2017 Documentation of current medications (procedure) Done Invalid Interpretation Code [facility] Work Phone: Documentation of current medications (procedure) T Invalid Interpretation Code [facility] Work Phone: Tobacco smoking status NHIS Never Invalid Interpretation Code [facility] Work Phone: Tobacco smoking status NHIS Never smoker [facility] Work Phone: Tobacco use [facility] Never smoker Invalid Interpretation Code [facility] Work Phone: Vital Signs Date Time Vital Sign Value Performing Clinician Facility 07-02-2024 09:36-0400 Body temperature 98.1 [degF] Frandy Alvarado ICE CREAM MIXER-WEB DEVELOPMENT MANAGER Work Phone: [facility] 07-02-2024 09:36-0400 Diastolic blood pressure 82 mm[Hg] Frandy Alvarado APRN-WEB DEVELOPMENT MANAGER [facility] 07-02-2024 09:36-0400 Heart rate 74 /min Frandy Alvarado ICE CREAM MIXER-WEB DEVELOPMENT MANAGER [facility] 07-02-2024 09:36-0400 Respiratory rate 16 /min Frandy Alvarado ICE CREAM MIXER-WEB DEVELOPMENT MANAGER [facility] 07-02-2024 09:36-0400 SaO2% (BldA) [Mass fraction] 100 % Frandy Alvarado APRN-WEB DEVELOPMENT MANAGER Work Phone: [facility] 07-02-2024 09:36-0400 Systolic blood pressure 126 mm[Hg] Frandy Alvarado ICE CREAM MIXER-WEB DEVELOPMENT MANAGER Work Phone: [facility] 08-08-2023 13:07-0400 Body height 170.2 cm Med [facility] 08-08-2023 13:07-0400 Body mass index (BMI) [Ratio] 24.2 kg/m2 Med Provider [facility] 08-08-2023 13:07-0400 Body temperature 96.8 [degF] Med Provider [facility] 08-08-2023 13:07-0400 Body weight 70.08 kg Med Provider [facility] 08-08-2023 13:07-0400 Diastolic blood pressure 69 mm[Hg] Med Provider [facility] 08-08-2023 13:07-0400 Heart rate 70 /min Med Provider [facility] 08-08-2023 13:07-0400 Respiratory rate 16 /min Med Provider [facility] 08-08-2023 13:07-0400 SaO2% (BldA) [Mass fraction] 100 % Med Provider [facility] 08-08-2023 13:07-0400 Systolic blood pressure 126 mm[Hg] [facility] 04-07-2017 08:21-0400 BMI (Body Mass Index) 22.08 kg/m2 Evita Gunderson LPN [facility] Work Phone: 04-07-2017 08:21-0400 Body Temperature 98.6 [degF] Evita Gunderson LPN [facility] Work Phone: 04-07-2017 08:21-0400 Body weight 63.96 kg Huy SAMAYOA [facility] Work Phone: 04-07-2017 08:21-0400 BP Diastolic 72 mm[Hg] Evita Gunderson LPN [facility] Work Phone: 04-07-2017 08:21-0400 BP Systolic 110 mm[Hg] Evita Gunderson LPN [facility] Work Phone: 04-07-2017 08:21-0400 Height 170.18 cm Evita Gunderson LPN [facility] Work Phone: 04-07-2017 08:21-0400 Pulse (Heart Rate) 64 /min Evita Gunderson LPN [facility] Work Phone: 04-07-2017 08:21-0400 Pulse Oximetry 99 % Evita Gunderson LPN [facility] Work Phone: 04-07-2017 08:21-0400 Respiratory Rate 14 /min Evita Gunderson LPN [facility] Work Phone: 04-07-2017 08:21-0400 Weight 63.96 kg Evita Gunderson LPN [facility] Work Phone: Encounters Encounter Date Encounter Type Care Provider Facility Start: 08-05-2024 End: 08-05-2024 Orders Only Jalil Vora MD Work Phone: [facility] - Ambulatory Start: 07-15-2024 ambulatory UNKNOWN PROVIDER Facili ty:[facility] Start: 07-02-2024 End: 07-02-2024 Emergency department patient visit Frandy Pamela BENOIT Work Phone: [facility] Emergency Medicine Comment on above: Foreign Body - Other (States thinks she has a tampon stuck since Saturday, denies cramping, pain, discharge. +foul odor) Start: 03-22-2024 [facility] Start: 08-28-2023 ambulatory UNKNOWN PROVIDER Facili ty:[facility] Start: 08-10-2023 Telephone encounter Robel ward MD Work Phone: [facility] Internal Medicine Start: 08-08-2023 End: 08-08-2023 Office outpatient new 30 minutes Med Care Provider [facility] Comment on above: Paronychia of finger , unspecified laterality (Primary Dx); Body mass index (BMI) 24.0-24.9, adult Start: 08-08-2023 End: 08-08-2023 ambulatory UNKNOWN PROVIDER Facility:[facility] Start: 07-04-2023 End: 07-04-2023 Clinical Support Pathology Provider [facility] Main Cam pus Pathology Comment on above: Arrived Start: 09-25-2022 Letter encounter [facility] Procedures Date Procedure Procedure Detail Performing Clinician Start: 07-02-2024 Smr prim src wet karol nt nfct agt Frandy Alvarado ICE CREAM MIXER-WEB DEVELOPMENT MANAGER Work Phone: Start: 07-02-2024 Urnls dip stick/tabl et rgnt auto w/o microscopy Frandy Alvarado ICE CREAM MIXER-WEB DEVELOPMENT MANAGER Work Phone: Start: 08-08-2023 Cul bact xcpt urine blood/stool aerobic isol Robel Caceres MD Work Phone: Start: 07-04-2023 Glucose quantitative blood xcpt reagent strip Gina Guallpa MD Work Phone: Start: 04-07-2017 End: 04-07-2017 Documentation of current medications Huy SAMAYOA Start: 04-07-2017 End: 04-07-2017 Iaadiadoo streptococcus group a Rei De La Cruz PA-C Work Phone: Start: 04-07-2017 End: 04-07-2017 Rapid strep test Rei De La Cruz PA-C Work Phone: Start: 09-27-2004 Microscopic observat ion [Identifier] in Cervix by Cyto stain Frandy Alvarado APRN-WEB DEVELOPMENT MANAGER Work Phone: Plan of Treatment Date Care Activity Detail Author Start: 2029 Shingles (RZV) Vacci ne (1 of 2) Shingles (RZV) Vaccine (1 of 2) [facility] Start: 04-26-2029 Tetanus vaccination Tetanus (T d or Tdap) Booster [facility] Start: 10-01-2024 End: 10-01-2024 Patient encounter procedure 10/01/2024 1:00 PM EST Office Visit [facility] [address] [place] [address] Janelle Ni, CARLOS-WEB DEVELOPMENT MANAGER [address] [place] [address] [facility] Start: 09-02-2024 Screening for malign ant neoplasm of breast Mammography [facility] Start: 08-11-2024 Influenza vaccination Influenza Vacc ine (#1) [facility] Start: 07-12-2024 Influenza vaccination Influenza Vacc ine (#1) [facility] Start: 07-02-2024 COVID-19 Vaccine ( formulation) COVID-19 Vaccine ( formulation) [facility] Start: 09-03-2023 Screening for malign ant neoplasm of breast Mammography [facility] Start: 08-11-2023 Influenza vaccination Influenza Vacc ine (#1) [facility] Start: 07-12-2023 Influenza vaccination Influenza Vacc ine (#1) [facility] Start: 08-11-2022 Influenza vaccination Influenza Vacc ine (#1) [facility] Start: 2019 Screening for malign ant neoplasm of breast Mammography [facility] Start: 04-07-2017 End: 04-07-2017 Appointment Appointment [facility] Work Phone: Start: 04-07-2017 End: 04-07-2017 Streptococcus.beta-hemo lytic [Presence] in Throat by Organism specific culture *Culture, R/O Strep A Swab [facility] Work Phone: Start: 09-27-2007 Screening for malign ant neoplasm of cervix Pap Smear [facility] Start: 2006 HPV Vaccine (optiona l start 27-45 years) HPV Vaccine (optional start 27-45 years) [facility] Start: 2000 Screening for malign ant neoplasm of cervix Pap Smear [facility] Start: 1998 Hepatitis A (HAV) Vaccine (optional start 19+ years) Hepatitis A (HAV) Vaccine (optional start 19+ years) [facility] Start: 1997 Hepatitis C screening Hepatitis C An tibody [facility] Start: 1994 HIV screening HIV Test [facility] Start: 1979 COVID-19 Vaccine ( formulation) COVID-19 Vaccine ( formulation) [facility] Cul bact xcpt urine blood/stool aerobic isol [facility] Work Phone: Comment on above: Ordered: 08/08/2023 End: 07-02-2024 Iadna neisseria gonorrhoeae amplified probe tq [facility] Work Phone: Comment on above: One time for 1 Occur rences starting 07/02/2024 until 07/02/2024 Patient Education [facility] Work Phone: Immunizations Immunization Date Immunization Notes Care Provider Aram herrera 08-28-2023 influenza, injectabl e, quadrivalent, preservative free [facility] Work Phone: 08-28-2023 Pfizer COVID-19 Vaccine (12+ yrs, Formulation) mRNA, spike protein, LNP, pres. free, 30 mcg/0.3mL dose, vicente-sucrose (BPY=126) [facility] 08-28-2023 influenza virus vaccine, unspecified formulation Frandy BENOIT Work Phone: [facility] 09-03-2022 influenza, seasonal, injectable Pathology Provider [facility] 09-03-2022 influenza virus vaccine, unspecified formulation Pathology Provider [facility] 09-26-2021 Moderna Monovalent (12+ yrs) COVID-19 vaccine, mRNA, spike protein, LNP, PF, 100 mcg/0.5 mL (UPN=443) Pathology Provider [facility] 08-16-2021 influenza, seasonal, injectable Pathology Provider [facility] 08-16-2021 influenza, seasonal, injectable, preservative free [facility] 08-16-2021 influenza virus vaccine, unspecified formulation [facility] 12-06-2020 Moderna Monovalent (12+ yrs) COVID-19 vaccine, mRNA, spike protein, LNP, PF, 100 mcg/0.5 mL (BMK=733) Pathology Provider [facility] 11-08-2020 Moderna Monovalent (12+ yrs) COVID-19 vaccine, mRNA, spike protein, LNP, PF, 100 mcg/0.5 mL (XEV=612) Pathology Provider [facility] 08-29-2020 influenza, seasonal, injectable, preservative free Pathology Provider [facility] 08-12-2019 influenza, injectabl e, quadrivalent, contains preservative Pathology Provider [facility] 04-26-2019 tetanus toxoid, reduced diphtheria toxoid, and acellular pertussis vaccine, adsorbed [facility] 03-26-2019 tetanus toxoid, reduced diphtheria toxoid, and acellular pertussis vaccine, adsorbed Pathology Provider [facility] 07-23-2018 influenza, seasonal, injectable, preservative free Pathology Provider [facility] 08-16-2017 influenza, seasonal, injectable Pathology Provider [facility] 08-10-2016 influenza, seasonal, injectable, preservative free Pathology Provider [facility] 09-07-2015 influenza, injectabl e, quadrivalent, contains preservative Pathology Provider [facility] 08-11-2014 influenza, injectabl e, quadrivalent, contains preservative Pathology Provider [facility] 09-10-2013 influenza virus vaccine, unspecified formulation Pathology Provider [facility] 09-10-2013 influenza, seasonal, injectable Pathology Provider [facility] 09-05-2009 novel [id number], preservative-free, injectable [facility] 10-11-1999 hepatitis B vaccine, adult dosage [facility] 05-11-1999 hepatitis B vaccine, adult dosage [facility] 04-11-1999 hepatitis B vaccine, adult dosage [facility] 03-16-1997 diphtheria, tetanus toxoids and pertussis vaccine [facility] 02-21-1992 measles, mumps and rubella virus vaccine [facility] 12-22-1982 trivalent poliovirus vaccine, live, oral [facility] 11-21-1982 diphtheria, tetanus toxoids and acellular pertussis vaccine [facility] 12-27-1980 measles, mumps and rubella virus vaccine [facility] 04-16-1980 trivalent poliovirus vaccine, live, oral [facility] 02-23-1980 diphtheria, tetanus toxoids and acellular pertussis vaccine [facility] 01-21-1980 diphtheria, tetanus toxoids and acellular pertussis vaccine [facility] 01-21-1980 trivalent poliovirus vaccine, live, oral [facility] 1979 trivalent poliovirus vaccine, live, oral [facility] 1979 diphtheria, tetanus toxoids and acellular pertussis vaccine [facility] Payers Date Payer Category Payer Unknown [id number] 2022 Unknown [id number] 1979 Unknown [id number] 1979 Unknown [id number] [id number] 1979 Unknown [id number] Social History Date Type Detail Facility Tobacco smoking status ALIS Toba mortgage accounting clerk smoking consumption unknown [facility] Start: 1980 Sex Assigned At [facility] on file [facility] Start: 08-08-2023 Gender identity Not on file [facility] Start: 08-08-[address] [facility] Never sm oked tobacco [facility] Start: 08-08-2023 Tobacco use and exposure Smokeless t obacco non-user [facility] Start: 08-08-2023 History of Social function [facility] Within the last year , have you been afraid of your partner or ex-partner? No [facility] Do you belong to any clubs or organizations such as congregational groups, unions, fraternal or athletic groups, or school groups? Yes [facility] Are you now , , , , never or living with a partner? [facility] How hard is it for y ou to pay for the very basics like food, housing, medical care, and heating Not hard at all [facility] Do you feel stress - tense, restless, nervous, or anxious, or unable to sleep at night because your mind is troubled all the time - these days [OSQ] Only a little [facility] ([facility]/We) [facility] would run out before (I/we) got money to buy more. Never true [facility] Start: 08-08-2023 Education 20 [facility] Clinical Notes 08-08-2023 to 07-02-2024 Slick Thomson RN - 07/02/2024 11:35 AM EDSlick viveros RN - 07/02/2024 11:35 AM [facility] 07/02/2024 10:10 AM EDTDischarge Frandy Bee APRN-CNP - 07/02/2024 10:10 AM EDT Note Date & Type Note Facility 07-02-2024 Emergency department Note For matting of this note might be different from the original. Pt discharged at this time, no S/S distress, no IV present. Discharge paperwork provided, pt voices understanding of same and denies questions. PT ambulates to [facility] with no difficulty. [facility] 07-02-2024 Emergency department Note For matting of this note might be different from the original. Pt discharged at this time, no S/S distress, no IV present. Discharge paperwork provided, pt voices understanding of same and denies questions. PT ambulates to [facility] with no difficulty. Images from the original note were not included. EMERGENCY DEPARTMENT - VISIT NOTE HISTORY OF PRESENT ILLNESS Chief Complaint Patient presents with Foreign Body - Other States thinks she has a tampon stuck since Saturday, denies cramping, pain, discharge. +foul odor The history is provided by the Patient. SARAH Ramos is a 43 year old female presenting to the ED for concerns of a retained tampon x1 week, +foul odor, no abdominal/back pain, no dysuria. Pt Denies: N/V/D/F, abdominal/back pain, dysuria, or rash Sick Contacts: none Home Treatment: none --- PAST HISTORY ------ Past Medical History: reviewed Surgical History: reviewed Social History: Smoking cessation counseling of less than 3 minutes was provided to the patient including Reinforced decision not to smoke. Family History: reviewed The patient's home medications have been reviewed. Allergies: Allergies Allergen Reactions Sulfamethoxazole Hives - PHYSICAL EXAM ------- BP 126/82 Pulse 74 Temp 98.1 F (36.7 C) (Oral) Resp 16 SpO2 100% General: NAD Head: Normocephalic Eyes: No conjunctival injection or eye discharge, lids normal Mouth: Moist mucous membranes, oropharynx clear Neck: FROM, no anterior cervical LAD, no bony tenderness Neuro: Awake, alert, active CVS: RRR Lungs: CTA bilaterally Abdomen: Soft, nontender, nondistended, no guarding : no CMT, no adnexal tenderness, +copious brown discharge, +retained tampon Skin: warm and dry Musculoskeletal: FROM Back: no bony tenderness, no CVAT MEDICAL DECISION MAKING and ED COURSE Nursing triage and assessment notes reviewed and incorporated. Medication Management: Medications prescribed - see visit medications. Independent Test Interpretation: Labs Lab studies personally interpreted UA: no UTI, +some blood, +leukocytes GC/Chlamydia/Trichomonas: pending SOUTH/[place]: +clue cells, no yeast Course: PROCEDURE NOTE: FOREIGN BODY REMOVAL Informed consent, after discussion of the risks, benefits, and alternatives to the procedure, was obtained verbally from the patient prior to procedure. The patient was identified using two patient identifiers: Yes. The H&P along with required diagnostics are available in Epic: Yes The correct procedure was verified: Yes Procedural site identified: Yes Presence of required equipment verified prior to starting procedure: Yes Patient allergies identified or reviewed: Yes Site marking done: Not indicated A timeout to verify the correct patient, procedure, and site was performed immediately prior to the procedure The presence of the foreign body in the vagina was noted. The patient was cooperative for the procedure. The foreign body was removed using forceps. The patient tolerated the procedure well. CY Navarrete Assessment & Plan: Foreign Body Vagina Discussed reasons to return to the ED. F/u with MACHINE SWEEPER BRUSH MAKER/PCP. IMPRESSION AND DISPOSITION Clinical Impression Diagnosis Comment Foreign body in vagina, initial encounter [T19.2XXA] Bacterial vaginosis [N76.0, B96.89] Disposition: Home The patient has received a medical screening examination and within reasonable clinical confidence an emergency medical condition was identified and has been stabilized. Counseling: Spoke with the patient and discussed today s findings, in addition to providing specific details for the plan of care and expected course. They were given the opportunity to ask questions. Discussed return precautions and importance of follow-up. Advised to follow-up with PCP/MACHINE SWEEPER BRUSH MAKER. Advised to return to the ED for changing or worsening symptoms, new symptoms, complaint specific precautions, and precautions listed on the discharge paperwork. Educated on the common potential side effects of medications prescribed. ED Prescriptions: Clindamycin, Keflex, Flagyl CY Navarrete documented in this encounter [facility] 07-02-2024 Hospital Discharg e instructions Frandy Alvarado APRN-CNP - 07/02/2024 10:51 AM EDT Follow up with your PCP/MACHINE SWEEPER BRUSH MAKER. documented in this encounter [facility] 07-02-2024 Physician Emergen cy department Note Images from the original note were not included. EMERGENCY DEPARTMENT - VISIT NOTE HISTORY OF PRESENT ILLNESS Chief Complaint Patient presents with Foreign Body - Other States thinks she has a tampon stuck since Saturday, denies cramping, pain, discharge. +foul odor The history is provided by the Patient. SARAH Ramos is a 43 year old female presenting to the ED for concerns of a retained tampon x1 week, +foul odor, no abdominal/back pain, no dysuria. Pt Denies: N/V/D/F, abdominal/back pain, dysuria, or rash Sick Contacts: none Home Treatment: none --- PAST HISTORY ------ Past Medical History: reviewed Surgical History: reviewed Social History: Smoking cessation counseling of less than 3 minutes was provided to the patient including Reinforced decision not to smoke. Family History: reviewed The patient's home medications have been reviewed. Allergies: Allergies Allergen Reactions Sulfamethoxazole Hives - PHYSICAL EXAM ------- BP 126/82 Pulse 74 Temp 98.1 F (36.7 C) (Oral) Resp 16 SpO2 100% General: NAD Head: Normocephalic Eyes: No conjunctival injection or eye discharge, lids normal Mouth: Moist mucous membranes, oropharynx clear Neck: FROM, no anterior cervical LAD, no bony tenderness Neuro: Awake, alert, active CVS: RRR Lungs: CTA bilaterally Abdomen: Soft, nontender, nondistended, no guarding : no CMT, no adnexal tenderness, +copious brown discharge, +retained tampon Skin: warm and dry Musculoskeletal: FROM Back: no bony tenderness, no CVAT MEDICAL DECISION MAKING and ED COURSE Nursing triage and assessment notes reviewed and incorporated. Medication Management: Medications prescribed - see visit medications. Independent Test Interpretation: Labs Lab studies personally interpreted UA: no UTI, +some blood, +leukocytes GC/Chlamydia/Trichomonas: pending SOUTH/[place]: +clue cells, no yeast Course: PROCEDURE NOTE: FOREIGN BODY REMOVAL Informed consent, after discussion of the risks, benefits, and alternatives to the procedure, was obtained verbally from the patient prior to procedure. The patient was identified using two patient identifiers: Yes. The H&P along with required diagnostics are available in Epic: Yes The correct procedure was verified: Yes Procedural site identified: Yes Presence of required equipment verified prior to starting procedure: Yes Patient allergies identified or reviewed: Yes Site marking done: Not indicated A timeout to verify the correct patient, procedure, and site was performed immediately prior to the procedure The presence of the foreign body in the vagina was noted. The patient was cooperative for the procedure. The foreign body was removed using forceps. The patient tolerated the procedure well. Frandy Alvarado, ICE CREAM MIXER-WEB DEVELOPMENT MANAGER Assessment & Plan: Foreign Body Vagina Discussed reasons to return to the ED. F/u with MACHINE SWEEPER BRUSH MAKER/PCP. IMPRESSION AND DISPOSITION Clinical Impression Diagnosis Comment Foreign body in vagina, initial encounter [T19.2XXA] Bacterial vaginosis [N76.0, B96.89] Disposition: Home The patient has received a medical screening examination and within reasonable clinical confidence an emergency medical condition was identified and has been stabilized. Counseling: Spoke with the patient and discussed today s findings, in addition to providing specific details for the plan of care and expected course. They were given the opportunity to ask questions. Discussed return precautions and importance of follow-up. Advised to follow-up with PCP/MACHINE SWEEPER BRUSH MAKER. Advised to return to the ED for changing or worsening symptoms, new symptoms, complaint specific precautions, and precautions listed on the discharge paperwork. Educated on the common potential side effects of medications prescribed. ED Prescriptions: Clindamycin, Keflex, Flagyl CY Navarrete [facility] 08-10-2023 History of Presen t illness Narrative Called patient. Discussed sensitivity of staph aureus from wound culture. She continues to take doxycycline. Her wound is improving no pain minimal redness, no warmth no systemic signs of illness. A/P: Continue doxycycline. Follow up with PCP in two days. All questions answered documented in this encounter [facility] 08-08-2023 Note Addended by: ROBEL CACERES on: 08/08/2023 02:49 PM Modules accepted: Level of Service [facility] 08-08-2023 Note Addended by: ROBEL CACERES on: 08/08/2023 02:49 PM Modules accepted: Level of Service [facility] 08-08-2023 Note Addended by: ROBEL CACERES on: 08/08/2023 02:49 PM Modules accepted: Level of Service [facility] 08-08-2023 Note Addended by: ROBEL CACERES on: 08/08/2023 02:49 PM Modules accepted: Level of Service [facility] 08-08-2023 Miscellaneous Notes Addended by: ROBEL CACERES on: 08/08/2023 02:49 PM Modules accepted: Level of Service documented in this encounter [facility] 08-08-2023 History of Presen t illness Narrative Teaching Physician Note: I saw and evaluated the patient. I personally obtained the anthony and critical portions of the history and physical exam. I reviewed the resident's documentation and discussed the patient with the resident. I agree with the resident's medical decision making as documented in the resident's note. Robel Caceres MD Images from the original note were not included. Primary Care Visit [place] [id number] This patient is a 42 year old female here in clinic today to discuss: Chief Complaint: Urgent Visit and Hand/finger symptoms No prior visits. Subjective: SARAH Ramos is a 42 year old female with no significant past medical history presenting for painful, red left second finger Pt presents with three weeks of left index finger swelling and pain. 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 Pt has been able to express pus in past week. Decreased sensation at tip of left first finger with redness, not extending proximally. Denies N/V/D, abdominal pain, fever. Hx Current Outpatient Medications: doxycycline (MONODOX) 100 MG capsule, Take 1 Capsule by mouth 2 times daily., Disp: 14 Capsule, Rfl: 0 Allergies Allergen Reactions Sulfamethoxazole Hives No past medical history on file. No past surgical history on file. No family history on file. Social History Tobacco Use Smoking status: Never Smokeless tobacco: Never Review of Systems: Review of Systems Constitutional: Negative for chills and fever. Gastrointestinal: Negative for abdominal pain, diarrhea, nausea and vomiting. Objective: Vitals: BP 126/69 Pulse 70 Temp 96.8 F (36 C) (Temporal) Resp 16 Ht 5' 7 (1.702 m) Wt 154 lb 8 oz (70.1 kg) SpO2 100% BMI 24.20 kg/m no prior weight on file Physical Exam Constitutional: General: She is not in acute distress. Appearance: Normal appearance. She is normal weight. She is not ill-appearing or toxic-appearing. Eyes: Extraocular Movements: Extraocular movements intact. Conjunctiva/sclera: Conjunctivae normal. Pupils: Pupils are equal, round, and reactive to light. Cardiovascular: Rate and Rhythm: Normal rate and regular rhythm. Pulses: Normal pulses. Heart sounds: Normal heart sounds. No murmur heard. No friction rub. No gallop. Pulmonary: Effort: Pulmonary effort is normal. Breath sounds: Normal breath sounds. No wheezing, rhonchi or rales. Abdominal: General: Abdomen is flat. Bowel sounds are normal. Palpations: Abdomen is soft. Musculoskeletal: General: Swelling (left distal second finger with fluctuant area palpated, tenderness, redness. Not extending proximal to left second DIP joint) present. Neurological: Mental Status: She is alert. Labs: Most Recent Labs: CBC (last 3 years, up to 5 values) None Basic Metabolic Panel None LFT's (last 3 years, up to 5 values) None No results found for: HBA1C Lipids (last 3 years, up to 5 values) Chol- esterol TG HDL LDL Chol / HDL LDL / HDL Non HDL 07/04/23 0746 111 64 62 41 1.79 0.66 49 The ASCVD Risk score (Bita DK, et al., 2019) failed to calculate. No results found for: TSH Assessment/Plan SARAH Ramos is a 42 year old female with no significant past medical history presenting for painful, red left second finger SARAH was seen today for urgent visit and hand/finger symptoms. Diagnoses and all orders for this visit: Paronychia of finger, unspecified laterality -Present for three weeks starting at medial nail base of second finger -Pt able to express pus with pressing on area -Fluctuant area palpated at medial finger -Pus expression suggests staph infection likely. - CONSENT FOR PROCEDURE(S) - AEROBIC WOUND CULTURE -Start doxycyline 100mg BID for 7 days. -Follow up with PCP in 7 days to ensure resolution of symptoms -Pt aware of need to go to the ED if redness does not resolve and begins to move proximally. PROCEDURE NOTE: INCISION AND DRAINAGE Informed consent was obtained after discussion of the risks, benefits, and alternatives to the procedure. A timeout to verify the correct patient, procedure, and site was performed immediately prior to the procedure. The area to I&D was identified. Anesthesia was obtained with 5 cc of Lidocaine 1%. The area was prepped and draped in the usual fashion. A number 11 scalpel was used to create an incision. Return was 2 cc of purulent material mixed with blood. The site was then cleaned with alcohol wipes. A dressing was placed over the site. The patient tolerated the procedure well. Other orders - doxycycline (MONODOX) 100 MG capsule; Take 1 Capsule by mouth 2 times daily. Health Maintenance Health Maintenance Due Topic Date Due COVID-19 Vaccine (5108-3975 formulation) Never done HIV Test Never done Hepatitis C Antibody Never done Pap Smear Never done Mammography Never done HPV Vaccine (optional start 27-45 years) 2006 Influenza Vaccine (1) 07/12/2023 RTC: No follow-ups on file. Plan discussed with attending Dr. Caceres. Ej Petersen DO, PGY-1 Internal Medicine Patient was identified by name and date of . Cresencio Petersen. 08/08/2023 documented in this encounter [facility] 08-08-2023 History of Presen t illness Narrative Teaching Physician Note: I saw and evaluated the patient. I personally obtained the anthony and critical portions of the history and physical exam. I reviewed the resident's documentation and discussed the patient with the resident. I agree with the resident's medical decision making as documented in the resident's note. Robel Caceres MD Images from the original note were not included. Primary Care Visit [place] [phone] This patient is a 42 year old female here in clinic today to discuss: Chief Complaint: Urgent Visit and Hand/finger symptoms No prior visits. Subjective: SARAH Ramos is a 42 year old female with no significant past medical history presenting for painful, red left second finger Pt presents with three weeks of left index finger swelling and pain. 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 Pt has been able to express pus in past week. Decreased sensation at tip of left first finger with redness, not extending proximally. Denies N/V/D, abdominal pain, fever. Hx Current Outpatient Medications: doxycycline (MONODOX) 100 MG capsule, Take 1 Capsule by mouth 2 times daily., Disp: 14 Capsule, Rfl: 0 Allergies Allergen Reactions Sulfamethoxazole Hives No past medical history on file. No past surgical history on file. No family history on file. Social History Tobacco Use Smoking status: Never Smokeless tobacco: Never Review of Systems: Review of Systems Constitutional: Negative for chills and fever. Gastrointestinal: Negative for abdominal pain, diarrhea, nausea and vomiting. Objective: Vitals: BP 126/69 Pulse 70 Temp 96.8 F (36 C) (Temporal) Resp 16 Ht 5' 7 (1.702 m) Wt 154 lb 8 oz (70.1 kg) SpO2 100% BMI 24.20 kg/m no prior weight on file Physical Exam Constitutional: General: She is not in acute distress. Appearance: Normal appearance. She is normal weight. She is not ill-appearing or toxic-appearing. Eyes: Extraocular Movements: Extraocular movements intact. Conjunctiva/sclera: Conjunctivae normal. Pupils: Pupils are equal, round, and reactive to light. Cardiovascular: Rate and Rhythm: Normal rate and regular rhythm. Pulses: Normal pulses. Heart sounds: Normal heart sounds. No murmur heard. No friction rub. No gallop. Pulmonary: Effort: Pulmonary effort is normal. Breath sounds: Normal breath sounds. No wheezing, rhonchi or rales. Abdominal: General: Abdomen is flat. Bowel sounds are normal. Palpations: Abdomen is soft. Musculoskeletal: General: Swelling (left distal second finger with fluctuant area palpated, tenderness, redness. Not extending proximal to left second DIP joint) present. Neurological: Mental Status: She is alert. Labs: Most Recent Labs: CBC (last 3 years, up to 5 values) None Basic Metabolic Panel None LFT's (last 3 years, up to 5 values) None No results found for: HBA1C Lipids (last 3 years, up to 5 values) Chol- esterol TG HDL LDL Chol / HDL LDL / HDL Non HDL 07/04/23 0746 111 64 62 41 1.79 0.66 49 The ASCVD Risk score (Bita CHRISTIANSON, et al., 2019) failed to calculate. No results found for: TSH Assessment/Plan SARAH Ramos is a 42 year old female with no significant past medical history presenting for painful, red left second finger SARAH was seen today for urgent visit and hand/finger symptoms. Diagnoses and all orders for this visit: Paronychia of finger, unspecified laterality -Present for three weeks starting at medial nail base of second finger -Pt able to express pus with pressing on area -Fluctuant area palpated at medial finger -Pus expression suggests staph infection likely. - CONSENT FOR PROCEDURE(S) - AEROBIC WOUND CULTURE -Start doxycyline 100mg BID for 7 days. -Follow up with PCP in 7 days to ensure resolution of symptoms -Pt aware of need to go to the ED if redness does not resolve and begins to move proximally. PROCEDURE NOTE: INCISION AND DRAINAGE Informed consent was obtained after discussion of the risks, benefits, and alternatives to the procedure. A timeout to verify the correct patient, procedure, and site was performed immediately prior to the procedure. The area to I&D was identified. Anesthesia was obtained with 5 cc of Lidocaine 1%. The area was prepped and draped in the usual sterile fashion. A number 11 scalpel was used to create an incision. Return was 2 cc of purulent material mixed with blood. The site was then cleaned with alcohol wipes. A dressing was placed over the site. The patient tolerated the procedure well. Other orders - doxycycline (MONODOX) 100 MG capsule; Take 1 Capsule by mouth 2 times daily. Health Maintenance Health Maintenance Due Topic Date Due COVID-19 Vaccine ([id number] formulation) Never done HIV Test Never done Hepatitis C Antibody Never done Pap Smear Never done Mammography Never done HPV Vaccine (optional start 27-45 years) 2006 Influenza Vaccine (1) 07/12/2023 RTC: No follow-ups on file. Plan discussed with attending Dr. Caceres. Ej Petersen DO, PGY-1 Internal Medicine Patient was identified by name and date of . rCesencio Nicola. 08/08/2023 documented in this encounter [facility] Evaluation note Diagnosis Screening for hyperlipidemia Screening for lipoid disorders Screening for diabetes mellitus [facility] Diagnosis Paronychia of finger, unspecified laterality- Primary Body mass index (BMI) 24.0-24.9, adult [facility] Diagnosis Paronychia of finger, unspecified laterality- Primary Body mass index (BMI) 24.0-24.9, adult [facility] Diagnosis Foreign body in vagina, initial encounter- Primary Bacterial vaginosis Vaginitis and vulvovaginitis, unspecified documented in this encounter [facility] Summary Purpose Family History No Family History Records Found Advance Directives No Advanced Directives Records Found Additional Source Comments Reason for Visit (unrecogniz ed section and content) Reason Comments Urgent Visit Hand/finger symptoms Reason Comments Foreign Body - Other States thinks she h as a tampon stuck since Saturday, denies cramping, pain, discharge. +foul odor Scheduled Active and Recently Administ ered Medications (unrecognized section and content) Medication Order 06/30/2024 07/01/2024 07/02/2024 ceftriaxone (ROCEPHIN) 500 MG injection 500 mg (COMPLETED) 500 mg, Intramuscular, ONCE, 1 dose, On Liz 07/02/24 at 1112 1129 (Given - Provid er: Slick Thomson RN) clindamycin (CLEOCIN) capsule (COMPLETED) 300 mg, Oral, STAT, 1 dose, On Liz 07/02/24 at 1112 1130 (Given - Provid er: Slick Thomson RN) No Frequency Medication Order 06/30/2024 07/01/2024 07/02/2024 Lidocaine methylparaben free (XYLOCAINE) 1 % injection (COMPLETED) 1 dose, Starting on Liz 07/02/24 at 1123, Until Liz 07/02/24 at 1135 1128 (Due)1135 (Give n - Provider: Slick Thomson RN) INFORMATION SOURCE (unrecogn ized section and content) DATE CREATED AUTHOR 07/22/2024 [facility] FOR RECORDS PERTAINING TO PATIENTS WHO ARE OR HAVE BEEN ENROLLED IN A CHEMICAL DEPENDENCY/SUBSTANCEABUSE PROGRAM, SOME INFORMATION MAY BE OMITTED. This clinical summary was aggregated from multiple sources. Caution should be exercised in using it in the provision of clinical care. This summary normalizes information from multiple sources, and as a consequence, information in this document may materially change the coding, format and clinical context of patient data. In addition, data may be omitted in some cases. CLINICAL DECISIONS SHOULD BE BASED ON THE PRIMARY CLINICAL RECORDS. [facility] [employer] [facility]. provides no warranty or guarantee of the accuracy or completeness of information in this document.
== END | disposition home or self-care (01) ==
LOC: OPBI 09:41
PROVIDERS: PCP Family Medicine; Referring Provider Nurse Practitioner Women's Health; Visit Provider Nurse Practitioner Women's Health
DX: Z12.31 Encounter for screening mammogram for malignant neoplasm of breast (principal)
CPT/HCPCS: 77063; 77067